=== PATIENT | male | born 1975 | race Caucasian/White ===

== ENCOUNTER 2024-09-26 16:53 | Emergency (ER) | payer BC, SELFPAY ==
--- NOTE | ~2024-09-26 | XR_ITS ---
CHEST RADIOGRAPH, PA AND LATERAL CLINICAL HISTORY: CHEST PAIN . COMPARISON: 08/18/2018 TECHNIQUE: PA and lateral views of the chest. FINDINGS The cardiomediastinal silhouette is unremarkable. The lungs are clear. Visualized osseous structures and soft tissues are unremarkable. IMPRESSION: No focal infiltrate or effusion. Reviewed, dictated and finalized at location A. ING CAKE DESIGNER
--- NOTE | 2024-09-26 16:55 | ECG_ITS ---
Test Date: 2024-09-26 17:04:33 Measurements Intervals [place] Rate: 103 P: 55 SD: 177 QRS: 18 QRSD: 114 T: 19 QT: 362 QTc: 475 Interpretive Statements SINUS TACHYCARDIA NONSPECIFIC ST AND T WAVE ABNORMALITY No previous ECG available for comparison Electronically Signed On 09-28-2024 17:12:33 COATINGS INSPECTOR by Jean-Claude Charlton M.D.
--- NOTE | 2024-09-26 17:08 | ED_ITS ---
HPI - Chest Pain General Chief Complaint: Chest Pain <Rebeca Tolliver PA-C - Last Filed: 09/27/24 11:09> Stated Complaint: ELEVATED BP,CHEST TIGHTNESS AFTER SHOVELING SNOW <Rebeca Tolliver PA-C - Last Filed: 09/27/24 11:09> Time Seen by Provider: 09/26/24 17:08 <Rebeca Tolliver PA-C - Last Filed: 09/27/24 11:09> Focused HPI: This is a 48-year-old male that presents to the emergency department for chest tightness. Reports he shoveled snow for about 2 hours today. His chest started to feel tight. His blood pressure was also quite elevated. He took a dose of his nitroglycerin. Is unsure if this helped. GENERAL: Well-appearing, well-nourished, and in no acute distress. HEAD: Normocephalic, atraumatic. CHEST: Clear to auscultation. ?No respiratory distress. HEART: Regular rate and rhythm.? NEURO: ?Alert and oriented x3. Patient screened in triage and initial orders placed.? ?Additional care and disposition to be based upon?diagnostic testing and treatment. <Rebeca Tolliver PA-C - Last Filed: 09/27/24 11:09> Source: patient <LOGAN Keith Last Filed: 09/27/24 00:02> Mode of arrival: ambulatory <LOGAN Keith Last Filed: 09/27/24 00:02> Limitations: no limitations <LOGAN Keith Last Filed: 09/27/24 00:02> History of Present Illness HPI narrative: Agree with triage note above. Patient states that the discomfort is more of a tightness/burning. States that he has not experienced any the sharp pains or pressure. States that it is located to the left lower chest and does not radiate. Not associated with syncope or near syncope today. Denies nausea, vomiting, back pain, abdominal pain, numbness, weakness of the extremities. States that when he went inside after shoveling he noticed that his blood pressure was elevated, which is what prompted him to come to the ER. Endorses history of hypertension but no history of PA, stroke, smoking history or HLD. <Jose Laird PA-C - Last Filed: 09/27/24 00:02> Related Data Home Medications: Home Medications ?Medication ?Instructions ?Recorded ?Confirmed ?Last Taken ?Type No Home Medications 08/12/19 08/12/19 Unknown History <Rebeca Tolliver PA-C - Last Filed: 09/27/24 11:09> Allergies/Adverse Reactions: Allergies Allergy/AdvReac Type Severity Reaction Status Date / Time No Known Allergies Allergy Verified 09/26/24 16:54 <Rebeca Tolliver PA-C - Last Filed: 09/27/24 11:09> Review of Systems 2 Review of Systems: All systems as dictated in HPI <Jose Laird PA-C - Last Filed: 09/27/24 00:02> PMFSH Past Medical History Medical History: Medical History (Updated 09/27/24 @ 11:09 by Rebeca Tolliver PA-C) History of anxiety History of hypertension <Rebeca Tolliver PA-C - Last Filed: 09/27/24 11:09> Social History Social History: Social History (Updated 09/27/24 @ 11:09 by Rebeca Tolliver PA-C) Substance use: never <Rebeca Tolliver PA-C - Last Filed: 09/27/24 11:09> Exam 2 Narrative: GENERAL: Well-appearing, well-nourished, and in no acute distress. HEAD: Normocephalic, atraumatic. EYES: PERRLA and EOMI. ENT: Nares clear, no rhinorrhea or epistaxis. Mucous membranes moist. Oropharynx without tonsillar hypertrophy exudate or other lesions. NECK: Supple. No adenopathy or masses. CHEST: No respiratory distress. Clear to auscultation. No wheezes rales or rhonchi HEART: Regular rate and rhythm. No murmur heard. Normal peripheral pulses. ABDOMEN: Soft, nontender, nondistended, normal active bowel sounds. MSK: Normal range of motion. No edema. SKIN: Warm, dry, no rash. NEURO: Alert and oriented x4. No focal deficits. PSYCH: Normal mood and affect. <Jose Laird PA-C - Last Filed: 09/27/24 00:02> Course Vital Signs Vital signs: Vital Signs Temperature 98 F 09/26/24 17:16 Pulse Rate 99 09/26/24 17:16 Respiratory Rate 18 09/26/24 17:16 Blood Pressure 166/102 H 09/26/24 17:16 Pulse Oximetry 99 09/26/24 17:16 Oxygen Delivery Room Air 09/26/24 17:16 Temperature 97.0 F L 09/26/24 19:55 Pulse Rate 78 09/26/24 22:42 Respiratory Rate 15 09/26/24 22:42 Blood Pressure 132/88 09/26/24 22:42 Pulse Oximetry 99 09/26/24 22:42 Oxygen Delivery Room Air 09/26/24 21:01 <Rebeca Tolliver PA-C - Last Filed: 09/27/24 11:09> Vital Signs Temperature 98 F 09/26/24 17:16 Pulse Rate 99 09/26/24 17:16 Respiratory Rate 18 09/26/24 17:16 Blood Pressure 166/102 H 09/26/24 17:16 Pulse Oximetry 99 09/26/24 17:16 Oxygen Delivery Room Air 09/26/24 17:16 Temperature 97.0 F L 09/26/24 19:55 Pulse Rate 78 09/26/24 22:42 Respiratory Rate 15 09/26/24 22:42 Blood Pressure 132/88 09/26/24 22:42 Pulse Oximetry 99 09/26/24 22:42 Oxygen Delivery Room Air 09/26/24 21:01 <LOGAN Keith Last Filed: 09/27/24 00:02> MDM - Chest Pain MDM Narrative Medical decision making narrative: This is a 48-year-old male who presents to the ED for chief complaint of chest pain onset this afternoon while shoveling snow all. Vitals are showing elevated blood pressure but otherwise normal. Exam remarkable for the above. EKG unchanged from previous in 2016. No acute ischemic findings. Lab work unremarkable overall. Serial troponins are negative. Heart score is 3 due to history. D-dimer negative. Chest x-ray shows no acute findings. Presentation consistent with atypical chest pain. As possible that the pain was anginal, however he is not displaying signs of ACS. He is pain-free on multiple re-evaluations. He feels comfortable and would prefer to be discharged home at this point. Vitals have normalized. Patient will be discharged in stable condition. Supportive measures discussed and return precautions given. Patient is understanding and agreeable with plan for discharge with PCP follow-up. <Jose Laird PA-C - Last Filed: 09/27/24 00:02> Differential Diagnosis Differential diagnosis: Likely fracture of rib, pneumothorax, stable angina, unstable angina pectoris, atypical chest pain, st elevation myocardial infarction, costochondritis and chest pain <Jose Laird PA-C - Last Filed: 09/27/24 00:02> Lab Data Result diagrams: 09/26/24 17:08 09/26/24 17:08 <Rebeca Tolliver PA-C - Last Filed: 09/27/24 11:09> Labs: Lab Results 09/26/24 09/26/24 09/26/24 Range/Units 17:08 21:07 21:16 WBC 7.6 (4.5-10.0) K/mm3 RBC 4.72 (4.6-6.20) M/mm3 Hgb 15.9 (14.0-18.0) g/dL Hct 42.0 (42.0-52.0) % MCV 89.0 (80-100) fl MCH 33.7 (26-34) pg MCHC 37.9 H (32-36) g/dl RDW 11.6 (11.5-14.5) % Plt Count 207 (150-375) k/mm3 MPV 9.6 (7.4-10.4) fl Immature Gran % (Auto) 0.4 (0-0.5) % Neut % (Auto) 66.5 (45.5-73.1) % Lymph % (Auto) 25.1 (18.3-44.2) % [place] % (Auto) 6.0 (2.6-8.5) % Eos % (Auto) 1.7 (0-4.4) % Baso % (Auto) 0.3 (0.2-1.2) % Lymph # (Auto) 1.92 (0.9-3.2) K/mm3 [place] # (Auto) 0.5 (0.1-0.6) K/mm3 Eos # (Auto) 0.1 (0-0.3) K/mm3 Baso # (Auto) 0.0 (0.0-0.1) K/mm3 Abs Immat Gran (auto) 0.03 (0.00-0.031) K/mm3 Absolute Neuts (auto) 5.1 (1.3-6.7) K/mm3 Absolute Nucleated RBC 0.000 (0.0-0.012) K/mm3 Nucleated RBC % 0.0 (0.0-0.2) % PT 13.4 (11.1-14.7) Seconds INR 1.0 APTT 27.8 (22.3-36.8) Seconds D-Dimer < 0.27 (<0.48) ug/mL Sodium 132 L (137-145) mmol/L Potassium 3.8 (3.4-5.0) mmol/L Chloride 97 L (98-107) mmol/L Carbon Dioxide 25 (22-30) mmol/L Anion Gap 10 (4-12) mmol/L BUN 12 (9-20) mg/dL Creatinine 0.84 (0.7-1.3) mg/dL Estim Creat Clear Calc Not Reportable Estimated GFR > 60 (59 - ) Glucose 126 H (65-110) mg/dL Calcium 9.2 (8.4-10.2) mg/dL Total Bilirubin 1.3 (0.2-1.3) mg/dL AST 33 (17-59) U/L ALT 33 (6-50) U/L Alkaline Phosphatase 59 (38-126) U/L Troponin I < 0.012 < 0.012 (0.000-0.034) ng/mL Total Protein 8.0 (6.3-8.2) g/dL Albumin 4.9 (3.5-5.1) g/dL Lipase 213 (23-300) U/L <Rebeca Tolliver PA-C - Last Filed: 09/27/24 11:09> Lab Results 09/26/24 09/26/24 09/26/24 Range/Units 17:08 21:07 21:16 WBC 7.6 (4.5-10.0) K/mm3 RBC 4.72 (4.6-6.20) M/mm3 Hgb 15.9 (14.0-18.0) g/dL Hct 42.0 (42.0-52.0) % MCV 89.0 (80-100) fl MCH 33.7 (26-34) pg MCHC 37.9 H (32-36) g/dl RDW 11.6 (11.5-14.5) % Plt Count 207 (150-375) k/mm3 MPV 9.6 (7.4-10.4) fl Immature Gran % (Auto) 0.4 (0-0.5) % Neut % (Auto) 66.5 (45.5-73.1) % Lymph % (Auto) 25.1 (18.3-44.2) % [place] % (Auto) 6.0 (2.6-8.5) % Eos % (Auto) 1.7 (0-4.4) % Baso % (Auto) 0.3 (0.2-1.2) % Lymph # (Auto) 1.92 (0.9-3.2) K/mm3 [place] # (Auto) 0.5 (0.1-0.6) K/mm3 Eos # (Auto) 0.1 (0-0.3) K/mm3 Baso # (Auto) 0.0 (0.0-0.1) K/mm3 Abs Immat Gran (auto) 0.03 (0.00-0.031) K/mm3 Absolute Neuts (auto) 5.1 (1.3-6.7) K/mm3 Absolute Nucleated RBC 0.000 (0.0-0.012) K/mm3 Nucleated RBC % 0.0 (0.0-0.2) % PT 13.4 (11.1-14.7) Seconds INR 1.0 APTT 27.8 (22.3-36.8) Seconds D-Dimer < 0.27 (<0.48) ug/mL Sodium 132 L (137-145) mmol/L Potassium 3.8 (3.4-5.0) mmol/L Chloride 97 L (98-107) mmol/L Carbon Dioxide 25 (22-30) mmol/L Anion Gap 10 (4-12) mmol/L BUN 12 (9-20) mg/dL Creatinine 0.84 (0.7-1.3) mg/dL Estim Creat Clear Calc Not Reportable Estimated GFR > 60 (59 - ) Glucose 126 H (65-110) mg/dL Calcium 9.2 (8.4-10.2) mg/dL Total Bilirubin 1.3 (0.2-1.3) mg/dL AST 33 (17-59) U/L ALT 33 (6-50) U/L Alkaline Phosphatase 59 (38-126) U/L Troponin I < 0.012 < 0.012 (0.000-0.034) ng/mL Total Protein 8.0 (6.3-8.2) g/dL Albumin 4.9 (3.5-5.1) g/dL Lipase 213 (23-300) U/L <Jose Laird PA-C - Last Filed: 09/27/24 00:02> Imaging Data Radiologist's impression: ITS Impressions Chest X-Ray 09/26/24 17:33 IMPRESSION: No focal infiltrate or effusion. <Rebeca Tolliver PA-C - Last Filed: 09/27/24 11:09> ECG Data EKG #1: ECG completion date: 09/26/24 <LOGAN Keith Last Filed: 09/27/24 00:02> ECG completion time: 17:04 <Jose Laird PA-C - Last Filed: 09/27/24 00:02> Interpretation: Sinus rhythm Rate 103 Normal QRS No acute ischemic findings compared ECG on file from 2016. There are isolated T-wave inversions in lead 3 on today's EKG which are previously seen from 2016 as well. No STEMI <LOGAN Keith Last Filed: 09/27/24 00:02> EKG #2: ECG completion date: 09/26/24 <LOGAN Keith Last Filed: 09/27/24 00:02> ECG completion time: 20:58 <LOGAN Keith Last Filed: 09/27/24 00:02> Prior ECG tracings: available for review <LOGAN Keith Last Filed: 09/27/24 00:02> Interpretation: Sinus rhythm rate 83 Normal QRS Normal QTC No acute ischemic findings, unchanged from previous ECG today <LOGAN Keith Last Filed: 09/27/24 00:02> Critical Care Time Critical Care Time Critical Care Time: No <LOGAN Morejon Last Filed: 09/27/24 11:09> Discharge Plan Discharge Clinical Impression: Atypical chest pain <LOGAN Morejon Last Filed: 09/27/24 11:09> Patient Disposition: Home, Self-Care <LOGAN Morejon Last Filed: 09/27/24 11:09> Condition: Stable <LOGAN Morejon Last Filed: 09/27/24 11:09> Instructions: Antibiotic Form, Chest Pain (ED) <LOGAN Morejon Last Filed: 09/27/24 11:09> Additional Instructions: Your exam and imaging today are reassuring overall. Please continue taking your medications as prescribed and follow-up with PCP on this issue. If you have any new or worsening symptoms please return to the ER for further evaluation. <Rebeca Tolliver PA-C - Last Filed: 09/27/24 11:09> Patient Language: Setswana <LOGAN Morejon Last Filed: 09/27/24 11:09> Prescriptions: No Action No Home Medications <LOGAN Morejon Last Filed: 09/27/24 11:09> Follow-up/Referrals: Zoltan,MD Jacques [Primary Care Provider] - <LOGAN Morejon Last Filed: 09/27/24 11:09> Time of Disposition: 22:34 <LOGAN Morejon Last Filed: 09/27/24 11:09> 22:34 <LOGAN Keith Last Filed: 09/27/24 00:02> Quality HEART score for chest pain patients History: slightly suspicious <LOGAN Keith Last Filed: 09/27/24 00:02> ECG: non specific repolarization disturbance/LBTB/PM <LOGAN Keith Last Filed: 09/27/24 00:02> Age: > 45 and < 65 years <Jose Laird PA-C - Last Filed: 09/27/24 00:02> Risk factors: 1 or 2 risk factors <Jose Laird PA-C - Last Filed: 09/27/24 00:02> Troponin: < or = to 1x normal limit <Jose Laird PA-C - Last Filed: 09/27/24 00:02> Heart score: 3 <Rebeca Tolliver PA-C - Last Filed: 09/27/24 11:09> 3 <Jose Laird PA-C - Last Filed: 09/27/24 00:02>
[2024-09-26 17:14] LABS: Basophils Percent Auto 0.3 % (0.2-1.2); Eosinophils Absolute Auto 0.1 K/mm3 (0-0.3); Eosinophils Percent Auto 1.7 % (0-4.4); Hemoglobin 15.9 g/dL (14.0-18.0); Immature Granulocyte Absolute 0.03 K/mm3 (0.00-0.031); Immature Granulocyte Percent A 0.4 % (0-0.5); Lymphocytes Absolute Auto 1.92 K/mm3 (0.9-3.2); Lymphocytes Percent Auto 25.1 % (18.3-44.2); Mean Corpuscular HGB Conc 37.9 g/dl (32-36); Mean Corpuscular Hemoglobin 33.7 pg (26-34); Mean Platelet Volume 9.6 fl (7.4-10.4); Monocytes Absolute Auto 0.5 K/mm3 (0.1-0.6); Neutrophils Absolute Auto 5.1 K/mm3 (1.3-6.7); Neutrophils Percent Auto 66.5 % (45.5-73.1); Platelet Count Result 207 k/mm3 (150-375); Red Blood Count 4.72 M/mm3 (4.6-6.20); Red Cell Distribution Width 11.6 % (11.5-14.5); White Blood Count 7.6 K/mm3 (4.5-10.0)
[2024-09-26 17:16] VITALS: BP 166/102; PULSE 99; RESP 18; TEMP 36.6; O2SAT 99
[2024-09-26 17:24] LABS: Alanine Aminotransferase 33 U/L (6-50); Albumin Level 4.9 g/dL (3.5-5.1); Alkaline Phosphatase 59 U/L (38-126); Anion Gap 10 mmol/L (4-12); Aspartate Amino Transferase 33 U/L (17-59); Bilirubin,Total 1.3 mg/dL (0.2-1.3); Blood Urea Nitrogen 12 mg/dL (9-20); Calcium 9.2 mg/dL (8.4-10.2); Carbon Dioxide 25 mmol/L (22-30); Chloride 97 mmol/L (98-107); Estimated Glomerular Filt Rate > 60; Glucose 126 mg/dL (65-110); Lipase 213 U/L (23-300); Potassium 3.8 mmol/L (3.4-5.0); Sodium 132 mmol/L (137-145)
[2024-09-26 17:26] LABS: Partial Thromboplastin Time 27.8 Seconds (22.3-36.8); Prothrombin Time 13.4 Seconds (11.1-14.7)
[2024-09-26 17:35] LABS: Troponin I < 0.012 ng/mL (0.000-0.034)
[2024-09-26 19:55] VITALS: BP 171/108; PULSE 94; RESP 18; TEMP 36.1; O2SAT 99
--- NOTE | 2024-09-26 20:40 | ECG_ITS ---
Test Date: 2024-09-26 20:58:56 Measurements Intervals [place] Rate: 83 P: 40 HI: 158 QRS: -2 QRSD: 113 T: 12 QT: 374 QTc: 441 Interpretive Statements SINUS RHYTHM NONSPECIFIC ST AND T WAVE ABNORMALITY Compared to ECG 09/26/2024 17:04:33 NO SIGNIFICANT CHANGES Electronically Signed On 09-28-2024 17:18:16 FIELD PLACEMENT DIRECTOR by Jean-Claude Charlton M.D.
[2024-09-26 21:43] LABS: Troponin I < 0.012 ng/mL (0.000-0.034)
[2024-09-26 21:54] LABS: D Dimer < 0.27 ug/mL (<0.48)
[2024-09-26 22:27] VITALS: BP 132/90; PULSE 79; RESP 15; O2SAT 98
[2024-09-26 22:42] VITALS: BP 132/88; PULSE 78; RESP 15; O2SAT 99
--- OUTSIDE RECORDS SUMMARY | 2024-10-03 03:46 | XMS_ITS | Clinical Summary ---
Author Organization [facility] Address [address] [place] [id number] Care Team Providers Care Residential Designer Name Role Phone Ivanna Wadsworth RAIL CAR REPAIR CARMAN Primary Care Provider + Allergies No known active allergies Medications metoprolol (LOPRESSOR) 25 mg tablet TAKE 1 TABLET EVERY MORNING AND 1 TABLET AT BEDTIME FOR BP CONTROL 0 9 Active vitamin D3/vitamin K2, MK4, (K2 PLUS D3 ORAL) Take 1 tablet by mouth every morning Active multivit-min/fol ic/vit K/lycop (MEN'S MULTIVITAMIN ORAL) Take 1 tablet by mouth every morning Active cyanocobalamin (Vitamin B-12) 1,000 mcg tabletIndication s:Prevention of Vitamin B12 Deficiency Take 1,000 mcg by mouth every morning Active naproxen (NAPROSYN) 500 mg tabletIndication s:Right hip pain Take 1 tablet (500 mg total) by mouth 2 (two) times a day with meals TAKE 2 WITH BREAKFAST THE DAY BEFORE SURGERY THEN BID 16 tablet 9 Active HYDROcodone-acet aminophen (NORCO) 5-325 mg per tabletIndication s:Pain Take 1-2 tablets by mouth every 4 (four) hours as needed for pain 56 tablet 9 Active Additional Information Patient not taking.Reported on 08/01/2019 aspirin 325 mg tablet Take 1 tablet (325 mg total) by mouth 2 (two) times a day 60 tablet 9 Active scopolamine 1 mg over 3 days patch 3 day BRENNEN 1 PATCH BEHIND EAR 1 DAY PRIOR TO SURGERY DATE 0 9 Active chlorhexidine (PERIDEX) 0.12 % solution 0 9 Active Active Problems Problem Noted Date Diagnosed Date Labral tear of hip, degenerative 03/16/2019 Overview (03/16/2019): Added automatically from request for surgery [id number] Surgical History Surgery Date Site/Laterality Comments TONSILLECTOMY CLOSED REDUCTION AC JOINT Medical History Medical History Date Comments Anxiety Hypertension Sleep apnea, obstructive Social History Tobacco Use Types Packs/Day Years Used Date Smoking Tobacco: Never Smokeless Tobacco: Never Alcohol Use Standard Drinks/Week Comments Yes 0 (1 standard drink = 0.6 oz pur e alcohol) 6-12 drinks/week AUDIT-C Answer Date Recorded Frequency of Alcohol Consumption Never 01/21/2019 Average Number of Drinks Not on file 019 Frequency of Binge Drinking Not on file 11/2018 Sex and Gender Information Value Date Recorded Sex Assigned at Not on file 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 Gender Identity Not on file Sexual Orientation Not on file Obstetrics History Last Filed Vital Signs Vital Sign Reading Time Taken Comments Blood Pressure 133/93 04/22/2019 12:30 PM CDT Pulse 74 04/22/2019 12:50 PM CDT Temperature 36.2 ??C (97.2 ??F) 04/22/2019 1:30 PM CD T Respiratory Rate 12 04/22/2019 10:50 AM CDT Oxygen Saturation 98% 04/22/2019 12:50 PM CDT Inhaled Oxygen Concentration - - Weight 119 kg (262 lb 5.6 oz) 04/05/2019 3:25 PM CDT Height 185.4 cm (6' 1 ) 04/05/2019 3:25 PM CDT Body Mass Index 34.61 04/05/2019 3:25 PM CDT Plan of Treatment Not on file Medical Devices Implanted Type Area Multiskill Operator Device Identifier Shelf Expiration Date Model / Serial / Lot Dental Implant Tooth [employer] [id number] Bioraptor Knotless Inner Lock Plug Controllable Tension Food Safety Auditor - [id number] Implanted:Qty: 2 on 04/22/2019 by David Mathias MD at [facility] Right: Hip [employer] 06/16/2023 [id number] / / [id number] [employer] Ar-1938ps Knotless Suturetak Fiberwire 3mm 12.7mm 2 Banner Suture Peek - [id number] Implanted:Qty: 1 on 04/22/2019 by David Mathias MD at [facility] Right: Hip [employer] 12/20/2023 AR-1938PS / / [id number] [employer] Ar-1938ps Knotless Suturetak Fiberwire 3mm 12.7mm 2 Banner Suture Peek - [id number] Implanted:Qty: 1 on 04/22/2019 by David Mathias MD at [facility] Right: Hip [employer] [id number] 12/20/2023 AR-1938PS / / [id number] [employer] [id number] Bioraptor Knotless Inner Lock Plug Controllable Tension Food Safety Auditor - [id number] Implanted:Qty: 1 on 04/22/2019 by David Mathias MD at [facility] Right: Hip [employer] 07/16/2023 [id number] / / Insurance ACCESS CHOICE Care Teams Residential Designer Relationship Specialty Start Date End Date Ivanna Wadsworth NP [address] [address] PCP - General Nurse Practitioner 12/17/18
--- OUTSIDE RECORDS SUMMARY | 2024-10-03 03:46 | XMS_ITS ---
Author Name [facility] [place] [facility] Address [address] [place] [id number] Care Team Providers Care Stock Raiser Name Role Phone ELIA OSWALDO Primary Care Provider Unavailabl e Insurance Providers: All historical and current Section Date Range: From patient's date of to the date document was created. This section includes the names of all active insurance providers for the patient. Insurance Provider Type of Coverage Plan Name Start of Policy Coverage End of Policy Coverage Group Number Member ID Insurance Provider's Telephone Number Policy Barros's Name Patient's Relationship to Policy Barros [place] PREFERRED PROVIDER ORGANIZAT [place]ON (PPO) [place] Sep 21, 2018 [id number] [phone] BILLIE DOUGHERTY MY SPOUSE ANTHEM [place] PREFERRED PROVIDER ORGANIZAT ION (PPO) [place] Sep 21, 2018 [id number] [phone] BILLIE DOUGHERTY MY SP[employer]SE AN[place] PREFERRED PROVIDER ORGANIZAT ION (PPO) [place] Sep 21, 2018 [id number] [phone] BILLIE DOUGHERTY MY SPOUSE [place] PREFERRED PROVIDER ORGANIZAT ION (PPO) [place] Sep 21, 2018 [id number] [phone] BILLIE DOUGHERTY MY SPOUSE Selected Encounter This section includes the information on record at [place] for the Encounter. Date/Time Encounter Type Encounter Description Reason Pro vider Source Dec 16, 2023 05:59 PM Outpatient Encounter ADMIN PAT ACTIVTIES (MASNONCT) IHE Encounter Template Text not used by [place] Social History: Smoking Status (Most current) and Tobacco Use (All prior to encounter date) This section includes the most current, and the historical, smoking and tobacco- related health factors from the [place] facility where the Encounter took place. Current Smoking Status This section includes the most current smoking, or tobacco-related health factor, from the [place] facility where the Encounter took place. Date/Time Current Smoking Status Comment Carla ity Mar 10, 2016 09:58 AM LIFETIME NON-USER OF TOBACCO [facility] Tobacco Use History This section includes a history of the smoking, or tobacco-related health factors, that were collected on or before the date of the Encounter. The data comes from the [place] facility where the Encounter took place. Date/Time Smoking Status/Tobacco Use Comment F acility Apr 10, 2015 12:44 PM LIFETIME NON-USER OF TOBAC [place] never [facility] Apr 17, 2014 06:52 AM LIFETIME NON-USER OF TOBAC CO never [facility] Encounter Notes: All associated encounter notes This section contains the clinical notes associated to the Encounter. Date/Time Encounter Note(s) Provider Source Dec 16, 2023 06:05 PM ADMINISTRATIVE NOT E: LOCAL TITLE: SCHEDULING NOTE ST STANDARD TITLE: ADMINISTRATIVE NOTE DATE OF NOTE: DEC 16, 2023@18:05 ENTRY DATE: DEC 16, 2023@18:05:40 AUTHOR: ELIZABETH REY EXP COSIGNER: URGENCY: STATUS: COMPLETED Additional comments: CALLED AND LEFT MESSAGE FOR PATIENT TO CALL TO SCHEDULE A NEW PATIENT APPOINTMENT PER INACTIVE LIST. ADDITIONAL RESULTS FROM SCHEDULING ATTEMPTS: /florence/ ELIZABETH REY Strip Catcher, COLIN Signed: 12/16/2023 18:06 ELIZABETH REY [facility] Dec 16, 2023 05:59 PM PRIMARY CARE SAWYER RS: LOCAL TITLE: PC NEW PATIENT NO CONTACT LETTER STL STANDARD TITLE: PRIMARY CARE LETTERS DATE OF NOTE: DEC 16, 2023@17:59 ENTRY DATE: DEC 16, 2023@17:59:46 AUTHOR: ELIZABETH REY EXP COSIGNER: URGENCY: STATUS: COMPLETED [facility] [address] [place] [address] DEC 16, 2023 ROEL [address]OUGH[address] [place] [address] Dear Roel Dougherty, Thank you for your interest in establishing care with a Primary Care Provider at the [facility]. Your Primary Care Provider is the clinical leader of your Patient Aligned Care Team (PACT). Your PACT Team manages and coordinates your comprehensive health care services. Primary Care includes, but is not limited to: diagnosis and management of acute and chronic health conditions, health promotion, disease prevention, overall care management, post-deployment care, and patient and caregiver education. If you would like more information, please visit [email or web address]. We have been unsuccessful in our attempts to contact you to schedule your initial appointment. Based on your current residence, the clinic recommended for your primary care needs is: [place] [phone] We are happy to accommodate your request with another clinic, if needed. Please call to schedule your initial appointment. Thank you for your service, and we look forward to hearing from you. Sincerely, ELIZABETH REY Strip Catcher, ROEL KENNEY [facility]
--- OUTSIDE RECORDS SUMMARY | 2024-10-03 03:46 | XMS_ITS | Referral Summary ---
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 Gender Identity Not on file Sexual Orientation Not on file Last Filed Vital Signs Vital Sign Reading [...] on file Medical Devices Implanted Type Area Oyster Grower Device Identifier Shelf Expiration Date Model / Serial / Lot Dental Implant Tooth [employer] [id number] Bioraptor Knotless Inner Lock Plug Controllable Tension Blood Bank Technologist - [id number] Implanted:Qty: 2 on 04/22/2019 by David Mathias MD at [facility] Right: Hip [employer] 06/16/2023 [id number] / / [id number] [employer] Ar-1938ps Knotless Suturetak Fiberwire 3mm 12.7mm 2 [employer] Suture Peek - [id number] Implanted:Qty: 1 on 04/22/2019 by David Mathias MD at [facility] Right: Hip [employer] 12/20/2023 AR-1938PS / / [id number] [employer] Ar-1938ps Knotless Suturetak Fiberwire 3mm 12.7mm 2 [employer]ilon Suture Peek - [id number] Implanted:Qty: 1 on 04/22/2019 by David Mathias MD at [facility] Right: Hip [employer] [id number] 12/20/2023 AR-1938PS / / [id number] [employer] [id number] Bioraptor Knotless Inner Lock Plug Controllable Tension Blood Bank Technologist - [id number] Implanted:Qty: 1 on 04/22/2019 by David Mathias MD at [facility] Right: Hip [employer] 07/16/2023 [id number] / / Insurance ACCESS CHOICE Care Teams Visitor Services Associate Relationship Specialty Start Date End Date Ivanna Wadsworth NP [address] [address] PCP - General Nurse Practitioner 12/17/18
--- OUTSIDE RECORDS SUMMARY | 2024-10-03 03:46 | XMS_ITS | Encounter Summary ---
Author Organization [facility] Address [address] [place] [address] Phone Care Team Providers Care Associate Spa Director Name Role Phone Brianna Wadsworth Miriam PLANT BIOLOGY PROFESSOR Primary Care Provider + Reason for Visit * Reason Comments Follow-up Encounter Details Date Type Department Care Team (Late st Contact Info) Description 08/01/2019 3:00 PM MAINFRAME CONSULTANT Office Visit [facility] [address] [place] [phone] David Mathias MD [address] [facility] [address] [place] [phone] Right hip pain (Primary Dx) Social History Tobacco Use Types Packs/Day Years [...] on file 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 The patient states he is making slow but steady progress, using ibuprofen on days when he is very active, doing home exercise program, mostly with bands and treadmill, and he has done a little bit of light jogging just recently. Overall making slow and steady increase in improvement. PHYSICAL EXAMINATION: General: He is alert and oriented x3. No acute distress. Nonlabored breathing. Musculoskeletal: He is moving comfortably in clinic. Gentle motion of his hip does not seem to be irritating him like it was before surgery. TREATMENT PLAN: The plan at this time is for him to gradually increase his activities, try to avoid jumping too quickly into new sports or activities without slowly introducing them in a conservative way. FOLLOW-UP: Otherwise, we will see him back for 1-year follow-up. Glad to see him back sooner if there are any issues or problems. ELECTRONICALLY SIGNED - 08/08/2019 08:46 AM David Mathias MD Land Surveying Survey Worker Joint Preservation, Resurfacing and Replacement Service [facility] RN/ps cc: MD BRIANNA WILLS NP FRAME CONSULTANT documented in this encounter Plan of Treatment Not on file documented as of this encounter Visit Diagnoses Diagnosis Right hip pain- Primary Pain in joint, pelvic region and thigh documented in this encounter Historical Medications * This list may reflect changes made after this encounter. Medication Sig Dispense Quantity Refills Last Filled Start D ate End Date chlorhexidine (PERIDEX) 0.12 % solution 0 05/18/2019 added in this encounter Care Teams Associate Spa Director Relationship Specialty Start Date End Date Brianna Wadsworth NP [address] [address] PCP - General Nurse Practitioner 12/17/18 documented as of this encounter
--- OUTSIDE RECORDS SUMMARY | 2024-10-03 03:46 | XMS_ITS | Encounter Summary ---
Author Organization [facility] Address [address] [place] [address] Phone Care Team Providers Care Python Consultant Name Role Phone Ivanna Wadsworth Miriam PAN GREASER Primary Care Provider + Encounter Details Date Type Department Care Team (Late st Contact Info) Description 04/13/2019 Telephone [facility] Orthopaedic Surgery 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 Confirm patient understands exactly what medications should be held 1 week prior to surgery: Yes Verify patient understands exactly what medications to take AM of surgery: Yes Verify if patient has CPAP machine & remind them to bring it with them to the hospital: No: Verify patient insurance: Yes Verify patient still has a joint coach wirer that will be caring for them AT LEAST 3-5 days/24 hours a day post op: Yes If patient having Posterior RHIANNON -- verify patient has a raised toilet seat & hip kit: No: Instruct patient to have joint coach wirer at the hospital on POD#1 to attend D/C class &/or observe nursing staff/OT/PT sessions: Yes Verify changes in medical status: No: If Yes, comment: Verify clean skin integrity: Yes If No, comment: documented in this encounter Plan of Treatment Not on file documented as of this encounter Visit Diagnoses Not on filedocumented in this encounter Care Teams Python Consultant Relationship Specialty Start Date End Date Ivanna Wadsworth NP [address] [address] PCP - General Nurse Practitioner 12/17/18 documented as of this encounter
--- OUTSIDE RECORDS SUMMARY | 2024-10-03 03:46 | XMS_ITS | Continuity of Care Document ---
Author Name [facility] Organization [facility] Care Team Providers Care Teaching Young Name Role Phone [facility] Unavailable Unavailable Problems Combined list of problems from Department of [facility] and [facility] facilities. It does not include entries that were removed or entered in error. Problem Status Onset Date Problem Type Date of Resolution Comments Source Benign hypertension Active Condition [facility] Chronic low back pain Active Condition [facility] Femoral acetabular impingement Active Condition [facility] HE[facility] SURVEY Active Condition DAVID Herrera [facility] Neck pain Active Condition [facility] Primary insomnia Active Condition [facility] Medications Combined list of outpatient medications from Department of [facility] and [facility] facilities.Medications provided include 1) outpatient medications from the last 15 months, and 2) patient-reported medications. Medication Details Route Status Patient Instructions Prescription Expires Prescription Number Last Dispense Date Ordering Provider Order Date Order Qty Source ACETAMINOPH EN 500MG TAB TAKE TWO TABLETS BY MOUTH THREE TIMES A DAY NEEDED ORAL ACTIVE PARESH GEORGE [address] [facility] METOPROLOL TARTRATE 50MG TAB TAKE ONE-HALF TABLET BY MOUTH TWICE A DAY ORAL ACTIVE KILEY RODRIGEZ 2018 [facility] Immunizations Combined list of available immunizations from the Department of [facility] and [facility] facilities. Immunization Series Date Given Administered By Site Reaction Lot Number CVX Code Drug Records Clerk Status Comments Source INFLUENZA, SEASONAL, INJECTABLE, PRESERVATIVE FREE [address] [facility] TDAP 2013 115 complet ed Left Deltoid [facility] Encounters Combined list of: 1) Encounters from [facility] of [facility] facilities going back up to thelast 18 months. 2) Encounters from the Department of [facility] facilities going back up to 280 months. Location Location Details Encounter Type Encounter Number Reason For Visit Attending Provider ADM Date DC Date Status Disposition Source [facility] Outpatient Encounter [id number] 1 12/[address] [facility] Social History Combined list of available smoking, tobacco, and other social history from Department of Defense and Veterans Affairs facilities. Social History Type Response Date Comment Sour e Tobacco smoking status [facility]TO[facility] NEVER USED 08/19/2018 [facility] History of tobacco use LIFETIME NON-USER OF TOBACCO 06/01/2017 never [facility] History of tobacco use LIFETIME NON-USER OF TOBACCO 04/27/2017 never [facility] History of tobacco use LIFETIME NON-USER OF TOBACCO 03/10/2016 [facility] History of tobacco use LIFETIME NON-USER OF TOBACCO 04/10/2015 never [facility] History of tobacco use LIFETIME NON-USER OF TOBACCO 04/17/2014 never [facility]
--- OUTSIDE RECORDS SUMMARY | 2024-10-03 03:46 | XMS_ITS | Encounter Summary ---
Author Organization [facility] Address [address] [place] [address] Care Team Providers Care Rn Hemo Dialysis Name Role Phone Ivanna Wadsworth NP Primary Care Provider + Reason for Visit * Diagnostic Imaging (Routine) - Closed Specialty Diagnoses / Procedures Referred By Mendez t Referred To Contact Diagnoses Right hip pain Procedures XR Hip Right 4 or More Views David Mathias MD Phone: tel: fax: [place] [address] [address] Referral ID Status Reason Start Date Expiration Date Visits Re quested Visits Authorized [id number] Closed 02/25/2019 09/05/2020 1 1 Encounter Details Date Type Department Care Team (Latest Contact Info) Description 03/16/2019 2:30 PM CDT Ancillary Procedure [facility] [address] [place] [address] David Mathias MD [address] [facility] [address] [place] [address] Right hip pain Discharge Disposition: Discharge to home or self care Social History Tobacco Use Types Packs/Day Years Used Date Smoking Tobacco: Never Smokeless Tobacco: Never Alcohol Use Standard Drinks/Week Comments Never 0 (1 standard drink = 0.6 oz pur e alcohol) AUDIT-C Answer Date Recorded Frequency of Alcohol Consumption Never 01/21/2019 Average Number of Drinks Not on file 019 Frequency of Binge Drinking Not on file 11/2018 Sex and Gender Information Value Date Recorded Sex Assigned at Not on file 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 Gender Identity Not on file Sexual Orientation Not on file documented as of this encounter Discharge Disposition Disposition Code Departure Means Destination Discharge to home or self care documented in this encounter Plan of Treatment Not on file documented as of this encounter Procedures Procedure Name Priority Date/Time Associated Diagnosis Comments XR HIP RIGHT 4 OR MORE VIEWS Schedule Routine, Read Routine (OP Routine) 03/16/2019 1:49 PM CDT Right hip pain documented in this encounter Results * XR Hip Right 4 or More Views (03/16/2019 1:49 PM CDT) Anatomical Region Laterality Modality Lower Extremities, Hip, Pelvis Right C omputed Radiography 03/16/2019 1:56 PM CDT Impressions 03/16/2019 1:56 PM CDT 1. 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 Electronically signed by: Arnav Osei M.D. Narrative 03/16/2019 1:56 PM CDT EXAMINATION:XR HIP RIGHT 4 OR MORE VIEWS HISTORY: Right hip pain FINDINGS: 4 radiographs of the right hip are submitted for interpretation without available comparison. ??There is no fracture. ??The right hip joint spaces are normal. ??There is mild deficient femoral head neck offset with a cam-type deformity. ??Sacroiliac joints are normal. ??The left hip joint space is normal. ??There is a sclerotic lesion within the left intertrochanteric femur likely representing a bone island Procedure Note Arnav Osei MD - 03/16/2019 EXAMINATION:XR HIP RIGHT 4 OR MORE VIEWS HISTORY: Right hip pain FINDINGS: 4 radiographs of the right hip are submitted for interpretation without available comparison. There is no fracture. The right hip joint spaces are normal. There is mild deficient femoral head neck offset with a cam-type deformity. Sacroiliac joints are normal. The left hip joint space is normal. There is a sclerotic lesion within the left intertrochanteric femur likely representing a bone island IMPRESSION: 1. 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 Electronically signed by: Arnav Osei M.D. David Mathias MD IMG XR PROCEDURES Final R esult documented in this encounter Visit Diagnoses Diagnosis Right hip pain Pain in joint, pelvic region and thigh documented in this encounter Care Teams Rn Hemo Dialysis Relationship Specialty Start Date End Date Ivanna Wadsworth NP [address] [address] PCP - General Nurse Practitioner 12/17/18 documented as of this encounter
--- OUTSIDE RECORDS SUMMARY | 2024-10-03 03:46 | XMS_ITS | Encounter Summary ---
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 Gender Identity Not on file Sexual Orientation Not on file documented as of this encounter Last Filed Vital Signs Vital Sign Reading Time Taken Comments Blood Pressure 133/93 04/22/2019 12:30 PM CDT Pulse 74 04/22/2019 12:50 PM CDT Temperature 36.2 ??C (97.2 ??F) 04/22/2019 1:30 PM CD T Respiratory Rate 12 04/22/2019 10:50 AM CDT Oxygen Saturation 98% 04/22/2019 12:50 PM CDT Inhaled Oxygen Concentration - - Weight - - Height - - Body Mass Index - - documented in this encounter Discharge Diagnoses Diagnosis Primary osteoarthritis of right hip - UNILATERAL PRIMARY OSTEOARTHRITIS, RIGHT HIP Other specified joint disorders, right hip - OTHER SPECIFIED JOINT DISORDERS, RIGHT HIP Anxiety disorder - ANXIETY DISORDER, UNSPECIFIED Anxiety state, unspecified Essential (primary) hypertension - ESSENTIAL (PRIMARY) HYPERTENSION Unspecified essential hypertension Obstructive sleep apnea - OBSTRUCTIVE SLEEP APNEA (ADULT) (PEDIATRIC) Obstructive sleep apnea (adult) (pediatric) Other terminal gauger supervisor (current) drug therapy - OTHER OFFAL BALER (CURRENT) DRUG THERAPY documented in this encounter Discharge Instructions * Discharge Instructions* Jose Rogers MD - 04/22/2019 10:41 AM CDT * Your incision is closed with dissolvable sutures under your skin and your skin has white steri strips & band-aid over the incision covered with an ashlyn wrap. You may remove the ashlyn wrap & band-aid 3 days after surgery. DO NOT REMOVE, PICK or RUB the steri strips- allow them to fall off by themselves in 7-10 days BUT if not off by 14 days after surgery- please remove. You may start showering 3-4 days after surgery with waterproof dressing (MANDATORY). You can stop using the waterproof dressing 1 week after surgery if the incision is dry and no drainage noted. * Do NOT submerge your incision (in a tub, hot tub, pool, panda, river, etc.) until it is healed andyour surgeon says it's ok. Do NOT use lotion, oil, alcohol or cream on your incision.* Hip Scope: -- Do NOT bend (flex) your hip more than 90 degrees. -- Do NOT let anyone bend (flex) your hip more than 90 degrees. -- Do NOT roll your thigh/knee inward/outward. -- You may do range of motion (ROM) / strengthening exercises on your affected leg like physical therapy showed you in the hospital. * Attachments The following attachments cannot be sent through Care Everywhere. * [facility] PATHWAY TO EXCELLENT CARE AFTER SURGERY * Scopolamine (Absorbed through the skin) ([place] Island[place]) documented in this encounter Medications at Time of Discharge aspirin 325 mg tablet Take 1 tablet (325 mg total) by mouth 2 (two) times a day 60 tablet 04/22/2019 cyanocobalamin (Vitamin B-12) 1,000 mcg tabletIndications: Prevention of Vitamin B12 Deficiency Take 1,000 mcg by mouth every morning HYDROcodone-acetam inophen (NORCO) 5-325 mg per tabletIndications: Pain Take 1-2 tablets by mouth every 4 (four) hours as needed for pain 56 tablet 04/22/2019 metoprolol (LOPRESSOR) 25 mg tablet TAKE 1 TABLET EVERY MORNING AND 1 TABLET AT BEDTIME FOR BP CONTROL 0 11/25/2018 multivit-min/folic /vit K/lycop (MEN'S MULTIVITAMIN ORAL) Take 1 tablet by mouth every morning naproxen (NAPROSYN) 500 mg tabletIndications: Right hip pain Take 1 tablet (500 mg total) by mouth 2 (two) times a day with meals TAKE 2 WITH BREAKFAST THE DAY BEFORE SURGERY THEN BID 16 tablet 04/13/2019 scopolamine 1 mg over 3 days patch 3 day BRENNEN 1 PATCH BEHIND EAR 1 DAY PRIOR TO SURGERY DATE 0 04/13/2019 vitamin D3/vitamin K2, MK4, (K2 PLUS D3 ORAL) Take 1 tablet by mouth every morning senna-docusate (SENOKOT-S) 8.6-50 mg Take 1 tablet by mouth daily for 14 days 14 tablet 04/22/2019 9 documented as of this encounter Ordered Prescriptions Prescription Sig Dispense Quantity Refills Last Filled Start Date End Date aspirin 325 mg tablet Take 1 tablet (325 mg total) by mouth 2 (two) times a day 60 tablet 04/22/2019 HYDROcodone-acetam inophen (NORCO) 5-325 mg per tabletIndications: Pain Take 1-2 tablets by mouth every 4 (four) hours as needed for pain 56 tablet 04/22/2019 senna-docusate (SENOKOT-S) 8.6-50 mg Take 1 tablet by mouth daily for 14 days 14 tablet 04/22/2019 9 documented in this encounter Discharge Disposition Disposition Code Departure Means Destination Discharge to home or self care documented in this encounter H&P Notes * Chaim Alexander MD - 04/22/2019 6:17 AM CDT I have reviewed the H&P, examined the patient, and endorse the findings as written. Plan of Care : Based on the above findings, I consider Roel Dougherty to be an acceptable risk for :Procedure(s): ARTHROSCOPY HIP - LABRAL REPAIR hip scope, osteo, scottie repair ARTHROSCOPY HIP - HIP OSTEOPLASTY Cosigned by David Mathias MD at 04/22/2019 12:44 PM CDT Source Note - Harini Charlton MD - 04/05/2019 3:48 PM CDT [facility] Planning Preoperative Evaluation Record [facility] at [facility] ([facility]) Date: 04/05/19 Anesthesia Evaluation Roel Dougherty is a 43 y.o. 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 male who is being evaluated prior to undergoing R hip arthroscopic labral repair, osteoplasty for R hip labral tear . Past Medical History Neurological + Psychiatric history - anxiety Pertinent negatives: neuromuscular disease; CVA/stroke and TIA Cardiovascular + Hypertension Typical systolic BP - 138 Typical diastolic BP - 78 Pertinent negatives: CAD ; ID ; DVT/PE; negative for CHF and hyperlipidemia Respiratory + Sleep apnea (PRINCESS) (CPAP non compliant. sleeps on side. ) Pertinent negatives: COPD; asthma; no O2 use outside the hospital and non-smoker Hepatic / Heme Pertinent negatives: liver disease and history of anemia Gastrointestinal Pertinent negatives: GERD Renal / Pertinent negatives: renal disease Musculoskeletal/Pain + Chronic pain (R hip) Pertinent negatives: chronic opioid use and osteoarthritis Endocrine / Other + Obesity (BMI >30) Pertinent negatives: diabetes mellitus; thyroid disease and cancer history Functional Capacity Functional capacity: 4-6 METs Comments: Limited by R hip pain Review of Systems + SOB (anxiety) + chronic pain (R hip) Pertinent negatives: recent cold/flu; fever; orthopnea; PND; previous transfusion; easy bruising; bleeding problems; nausea; diarrhea; dentures/partials and chipped/loose teeth PAT Summary and Plans Initial preoperative evaluation discussed with: Daniel Taylor MD Additional comments: Roel Dougherty is a 43 y.o. male who is being evaluated prior to undergoing an intermediate cardiac risk surgery. Revised Cardiac Risk Index factors are (none) for a total RCRI of0 out of 6. Functional capacity is 4-6 METs. Obstructive sleep apnea (PRINCESS) screening status is HIGH RISK due to known PRINCESS. Blood bank needs for day of procedure: No type and screen needed Pending labs/tests include: CMP Vitamin D Preoperative evaluation performed by Harini Charlton MD on 04/05/19 at 3:49 PM. . Follow up note Labs reviewed and are without significant findings. CPAP process complete. Follow-up completed by: Harini Charlton MD on 04/06/19 at 9:49 AM Patient Active Problem List Diagnosis ??? Labral tear of hip, degenerative Past Medical History: Diagnosis Date ??? Anxiety ??? Hypertension ??? Sleep apnea, obstructive Past Surgical History: Procedure Laterality Date ??? CLOSED REDUCTION AC JOINT ??? TONSILLECTOMY No Known Allergies HOME MEDICATIONS : acetaminophen (TYLENOL) 500 mg tablet ANASTROZOLE ORAL cyanocobalamin (Vitamin B-12) 1,000 mcg tablet ibuprofen (ibuprofen) 200 mg tab/cap INV-SLCH K27M/TT peptide ([id number]) vaccine metoprolol (LOPRESSOR) 25 mg tablet multivit-min/folic/vit K/lycop (MEN'S MULTIVITAMIN ORAL) prasterone, dhea, 25 mg capsule testosterone cypionate (DEPO-TESTOTERONE) 100 mg/mL injection UNABLE TO FIND vitamin D3/vitamin K2, MK4, (K2 PLUS D3 ORAL) Current Outpatient Medications: ??? acetaminophen (TYLENOL) 500 mg tablet ??? ANASTROZOLE ORAL ??? cyanocobalamin (Vitamin B-12) 1,000 mcg tablet ??? ibuprofen (ibuprofen) 200 mg tab/cap ??? INV-SLCH K27M/TT peptide ([id number]) vaccine ??? metoprolol (LOPRESSOR) 25 mg tablet ??? multivit-min/folic/vit K/lycop (MEN'S MULTIVITAMIN ORAL) ??? prasterone, dhea, 25 mg capsule ??? testosterone cypionate (DEPO-TESTOTERONE) 100 mg/mL injection ??? UNABLE TO FIND ??? vitamin D3/vitamin K2, MK4, (K2 PLUS D3 ORAL) Social History Tobacco Use Smoking Status Never Smoker Smokeless Tobacco Never Used Substance and Sexual Activity Alcohol Use Yes ??? Frequency: Never Comment: 6-12 drinks/week Substance and Sexual Activity Drug Use Never History reviewed. No pertinent family history. PAT Physical Exam Airway Exam: Mallampati: III Cervical ROM: FROM Cardiovascular Exam: Rate: regular Rhythm: regular Pulmonary Exam: LCTA, bilat Vitals: 04/05/19 1525 04/05/19 1528 04/05/19 1530 BP: (!) 150/105 140/89 150/98 Pulse: 80 Resp: 18 SpO2: 97% PT: No results found for requested labs within last 720 hours. INR: No results found for requested labs within last 720 hours. APTT: No results found for requested labs within last 720 hours. Hgb A1C: No results found for requested labs within last 720 hours. CBC RBC: No results found for requested labs within last 720 hours. RDW: No results found for requested labs within last 720 hours. MCHC: No results found for requested labs within last 720 hours. MCH: No results found for requested labs within last 720 hours. MCV: No results found for requested labs within last 720 hours. Hct: No results found for requested labs within last 720 hours. Hgb: No results found for requested labs within last 720 hours. WBC: No results found for requested labs within last 720 hours. MPV: No results found for requested labs within last 720 hours. Platelets: No results found for requested labs within last 720 hours. RDW CV: No results found for requested labs within last 720 hours. RDW Sd: No results found for requested labs within last 720 hours. BMP Glucose: No results found for requested labs within last 720 hours. Calcium: No results found for requested labs within last 720 hours. Sodium: No results found for requested labs within last 720 hours. Potassium: No results found for requested labs within last 720 hours. CO2: No results found for requested labs within last 720 hours. Chloride: No results found for requested labs within last 720 hours. BUN: No results found for requested labs within last 720 hours. Creatinine: No results found for requested labs within last 720 hours. Martha index score: 100 Anesthesia Plan documented in this encounter Nursing Notes * Sol Esposito RN - 04/22/2019 12:20 PM CDT Teaching and instructions given to patient and spouse. All questions answered at this time. Red booklet given. Waiting for filled prescriptions. * Isha Layne RN - 04/22/2019 10:40 AM CDT Surgeon discussed with patient that to stop Testerone inj because it will increase blood clot risk.Pt shows understanding. 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 Item Serial No. Information Technology Consultant Lot No. LRB No. Used [employer] [id number] BIORAPTOR KNOTLESS INNER LOCK PLUG CONTROLLABLE TENSION ECOLOGY PROFESSOR - [id number] [employer] [id number] Bioraptor Knotless Inner Lock Plug Controllable Tension Speech Pathologist Assistant [employer] [id number] Right 2 [employer] AR-1938PS KNOTLESS SUTURETAK FIBERWIRE 3MM 12.7MM 2 ANCHOR SUTURE PEEK - [id number] [employer] AR-1938PS Knotless Suturetak Fiberwire 3mm 12.7mm 2 [place] Suture Peek [employer] [id number] [employer] AR-1938PS KNOTLESS SUTURETAK FIBERWIRE 3MM 12.7MM 2 ANCHOR SUTURE PEEK - [id number] [employer] AR-1938PS Knotless Suturetak Fiberwire 3mm 12.7mm 2 [place] Suture Peek [employer] [id number] [employer] [id number] BIORAPTOR KNOTLESS INNER LOCK PLUG CONTROLLABLE TENSION ECOLOGY PROFESSOR - [id number] [employer] [id number] Bioraptor Knotless Inner Lock Plug Controllable Tension Speech Pathologist Assistant [employer] Right 1 Blood/Blood Products Transfused: 0 mls Complications: None Condition on Discharge from the operating room was stable Jose Rogers MD Date: 04/22/2019 Time: 10:15 AM No Resident involved on case Cosigned by David Mathias MD at 04/22/2019 12:44 PM CDT * Op Note - David Mathias MD - 04/22/2019 12:00 AM CDT Attending Physician David Mathias MD First Sales Agent Trading Stamps Jose Rogers MD Preoperative Diagnoses 1. Right hip labral tear. 2. 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 Postoperative Diagnoses 1. Right hip labral tear. 2. 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 Name Of Operation 1. Right hip arthroscopy. 2. Complete arthroscopic synovectomy. 3. Acetabular rim osteoplasty. 4. Labral repair. 5. Acetabular chondroplasty. 6. Femoral head and neck reshaping, Horacio procedure, performed arthroscopically. Indications For Procedure The patient has had longstanding hip and groin pain for some time. The patient was seen in my outpatient clinic. The patient had an MRI and clinical examination findings consistent with a labral tearand femoral acetabular impingement. The patient understood the risks, benefits, complications and al ternatives. The patient had failed injections and nonoperative treatment, and wished to proceed with surgery. Description Of Procedure The patient was identified in the preoperative holding area. All necessary informed consents were obtained. The patient's correct operative site was marked. He was taken to the operating room and hadsuccessful general anesthesia started. Then a Ocampo catheter was placed and perioperative antibiotics given. The patient's hip was prepped and draped in the usual sterile fashion. Utilizing anterolateral, posterolateral, and anterior working portals, we performed a diagnostic arthroscopy. It revealed extensive synovitis throughout the joint. There was an anterior/superior lateral labral tear withgrade 2 chondromalacia in the same zones at the labral/chondral junction of approximately 25%. The labrum was healthy posteriorly. The cartilage of the femoral head was pristine. At the head and neckjunction, we could see that there was reduced head and neck offset with a CAM-type lesion. The ligamentum teres was probed and found to be synovitic, but otherwise normal and not torn. After performing the diagnostic arthroscopy, we then performed a complete synovectomy using our arthroscopic equipment. We then opened the anterior capsule and performed: 1. A rim osteoplasty at the bony insertion of the labrum. 2. We repaired the labrum with 5 suture anchors. We assessed the labral repair and it had excellentstability. 3. We then used biters and jean to treat the acetabular chondromalacia and get it back to a healthy stable rim. After completing the work in the central compartment we then turned our attention to the peripheralcompartment and the head and neck junction. We debrided some of the anterior capsule to allow us tofurther visualize this. Then using a combination of burs and jean, we performed an arthroscopic Horacio procedure to reshape the head and neck region. We checked this both using arthroscopic and fluoroscopic imaging to ensure improvement in impingement lesion. We were able to restore the normal head and neck offset. We then irrigated out the hip with several liters. We closed the arthroscopic portals with 2-0 and 3-0 Monocryl. Steri-Strips, ABDs, and tape were utilized for dressing. The patient was taken to the recovery room after arousing from general anesthesia, in stable condition. Specimens Removed No specimens. Estimated Blood Loss Minimal. Intraoperative Fluids 1800 mL. Complications No complications. Operative Findings None. Sponge/Instrument/Needle Counts Instrument and needle counts were correct x2. Condition On Discharge From Operating Room The patient's disposition was stable to recovery. Present Statement Please note I was the attending of record. I was present for the critical portions of the case including the diagnostic arthroscopy, the labral work, the central and peripheral work, and the assessment of the impingement arthroscopically and fluoroscopically. Dr. Jose Rogers was immediately available for all noncritical portions of the procedure. Addendum Dr. Jose Rogers, a fellow in joint reconstructive and joint preservation surgery, was present for this procedure. His assistance was medically necessary as there was no qualified orthopedic resident available. His activities included helping with the establishment of the arthroscopic portals, maintenance of the camera and manipulation of the leg so I could perform the critical portions of the procedure, and help with wound closure at the end. Job ID/VF Job ID: [id number] documented in this encounter Plan of Treatment Not on file documented as of this encounter Procedures Procedure Name Priority Date/Time Associated Diagnosis Comments FL FLUOROSCOPY < 1 HOUR IP Routine 04/22/2019 10:22 AM CDT ARTHROSCOPY HIP - OPEN HIP OSTEOPLASTY 04/22/2019 7:21 AM CDT Labral tear of hip, degenerative Case Notes Line up complete per [facility] 04/13 ARTHROSCOPY HIP - LABRAL REPAIR 04/22/2019 7:21 AM CDT Labral tear of hip, degenerative Case Notes Line up complete per adrianne [facility] 04/13 documented in this encounter Results * FL Fluoroscopy < 1 Hour (04/22/2019 10:22 AM CDT) Narrative [facility] - 04/22/2019 10:23 AM CDT The images from this study are not interpreted by Radiology. ??Please refer to the physician's procedure / OR operative note. us David Mathias MD IMG FLUOROSCOPY PROCEDURE S Final Result [facility] documented in this encounter Visit Diagnoses Diagnosis Labral tear of hip, degenerative- Primary documented in this encounter Admitting Diagnoses Diagnosis Labral tear of hip, degenerative documented in this encounter Administered Medications Inactive Administered Medications - up to 3 most recent administrations Medication Order MAR Action Action Date Dose Rate Site HYDROcodone-acetaminophen (NORCO) 5-325 mg per tablet 1 tablet 1 tablet, oral, Once, On Thu04/22/19 at 1145, For 1 dose, Phase I & Post-op Floor, Indications: PainIndications:Pain Given 04/22/2019 11:15 AM CDT 1 tablet Lactated Ringer's (LR) infusion 30 mL/hr, intravenous, Continuous, Starting on Thu04/22/19 at 0615, Pre-Op New Bag 04/22/2019 8:40 AM CDT Rate/Dose Verify 04/22/2019 7:19 AM CDT 30 mL/h r New Bag 04/22/2019 6:42 AM CDT 30 mL/hr 30 mL/hr documented in this encounter Discontinued Medications Medication Sig Discontinue Reason Start Date End Da te testosterone cypionate (DEPO-TESTOTERONE) 100 mg/mL injectionIndications: Androgen Deficiency,on THURSDAY Inject 100 mg into the muscle as instructed once a week Stop Taking at Discharge 04/22/2019 prasterone, dhea, 25 mg capsule Take 1 capsule by mouth daily after lunch Stop Taking at Discharge 04/22/2019 UNABLE TO FIND Inject 1 each under the skin 2 (two) times a week Med Name: HCG 25mg twice weekly, on Thursday and Thursday Stop Taking at Discharge 04/22/2019 ANASTROZOLE ORALIndications: Take 1 tablet by mouth once a week Stop Taking at Discharge 04/22/2019 ibuprofen (ibuprofen) 200 mg tab/capIndications:Pa in Take 600 mg by mouth every 6 (six) hours as needed for pain Stop Taking at Discharge 04/22/2019 acetaminophen (TYLENOL) 500 mg tabletIndications:Bobby n Take 1,000 mg by mouth every 6 (six) hours as needed for pain Stop Taking at Discharge 04/22/2019 INV-SLCH K27M/TT peptide (LEEB655) vaccine Inject 0.8 mL into the muscle as instructed once Stop Taking at Discharge 04/22/2019 documented as of this encounter Active and Recently Administered Medications Times are shown in CDT. Scheduled Medication Order 04/20/2019 04/21/2019 04/22/2019 ceFAZolin (ANCEF) 2,000 mg/20 mL in sterile water (premix) 2,000 mg (COMPLETED) 2,000 mg, intravenous, at 400 mL/hr, Administer over 3 Minutes, Once, On Thu04/22/19 at 0615, For 1 dose, Pre-Op, Administer within 60 minutes of incision., Indications: Prophylaxis, Surgical 0832 (Given - Provid er: Sandra Roca CRNA) EPINEPHrine 2 mg in Lactated Ringer's (LR) 3,000 mL irrigation solution (COMPLETED) irrigation, Once, On Thu04/22/19 at 0745, For 1 dose, Intra-Op 0745 (Due)0821 (Give n - Provider: David Mathias MD - Comment: scope fluid) HYDROcodone-acetaminophen (NORCO) 5-325 mg per tablet 1 tablet (COMPLETED) 1 tablet, oral, Once, On Thu04/22/19 at 1145, For 1 dose, Phase I & Post-op Floor, Indications: Pain 1115 (Given - Provid er: Sol Esposito, TACOS) Continuous Medication Order 04/20/2019 04/21/2019 04/22/2019 Lactated Ringer's (LR) infusion 30 mL/hr, intravenous, Continuous, Starting on Thu04/22/19 at 0615, Pre-Op 0642 (New Bag - Prov ider: Selina Carreno RN)0719 (Rate/Dose Verify - Provider: Sandra Roca CRNA)0840 (New Bag - Provider: Sandra Roca CRNA)0900 (Anesthesia Volume Adjustment - Provider: Sandra Roca CRNA)1001 (Anesthesia Volume Adjustment - Provider: Sandra Roca CRNA)1222 (Stopped - Provider: Sol Esposito RN) PRN Medication Order 04/20/2019 04/21/2019 04/22/2019 bupivacaine (MARCAINE) 0.25 % (2.5 mg/mL) preservative free injection (CANCELED) As needed, Starting on Thu04/22/19 at 1020, Intra-Op 1020 (Given - Provid er: David Mathias MD - Comment: inejcted prior to closure) diphenhydrAMINE (BENADRYL) injection 12.5 mg 12.5 mg, intravenous, Administer over 2 Minutes, Every 15 min PRN, itching, Starting on Thu04/22/19 at 1018, For 2 doses, Phase I, Max cumulative dose 50 mg., Indications: Itching fentaNYL (SUBLIMAZE) preservative free injection 50 mcg 50 mcg, intravenous, Once as needed, uncontrolled pain on PACU admission, Starting on Thu04/22/19 at 1018, For 1 dose, Phase I, Then proceed to PACU 1st line analgesic., Indications: Pain haloperidol (HALDOL) injection 1 mg 1 mg, intravenous, Administer over 5 Minutes, Once as needed, nausea, vomiting, Starting on Thu04/22/19 at 1018, For 1 dose, Phase I, If nausea/vomiting not relieved by ondansetron within 30 minutes or if ondansetron has been given within the last 6 hours. HYDROmorphone (DILAUDID) injection 0.2 mg 0.2 mg, intravenous, Administer over 2 Minutes, Every 10 min PRN, 1st line for pain, Starting on Thu04/22/19 at 1018, Phase I, Switch to 2nd line analgesic order if pain is uncontrolled or increasing after 2 doses. Notify Anesthesiologist if total PACU dose reaches 2 mg and pain score 5/10 or more., Indications: Pain HYDROmorphone (DILAUDID) injection 0.4 mg 0.4 mg, intravenous, Administer over 2 Minutes, Every 10 min PRN, 2nd line for pain, Starting on Thu04/22/19 at 1018, Phase I, May administer 10 mintes after 2nd dose of 1st line analgesic agent for uncontrolled or increasing pain. Revert to 1st line dose if POSS of 3. Notify Anesthesiologist if total PACU dose reaches 2 mg and pain score 5/10 or more., Indications: Pain Lactated Ringer's (LR) irrigation (CANCELED) As needed, Starting on Thu04/22/19 at 0821, Intra-Op 0821 (Given - Provid er: David Mathias MD - Comment: placed on sterile field; used PRN)1000 (Given - Provider: David Mathias MD - Comment: scope fluid) meperidine (DEMEROL) preservative free injection 12.5 mg 12.5 mg, intravenous, Every 10 min PRN, shivering, Starting on Thu04/22/19 at 1018, For 2 doses, Phase I, Max cumulative dose 25 mg., Indications: Shivering naloxone (NARCAN) 0.4 mg/mL injection 0.04-0.4 mg 0.04-0.4 mg, intravenous, Once as needed, other, excessive sedation/respiratory depression, Starting on Thu04/22/19 at 1018, For 1 dose, Phase I, Dilute 0.4 mg with 9 mL NS (final concentration 0.04 mg/mL). For respiratory depression (respiratory rate less than 6), administer 0.4 mg IVP over 30 seconds. For excessive sedation administer 0.04 mg (1 mL) every 1 minute until desired level of alertness. For IV, administer over 30 seconds., Indications: Opioid Toxicity ondansetron (ZOFRAN) injection 4 mg 4 mg, intravenous, Administer over 2 Minutes, Once as needed, nausea, vomiting, Starting on Thu04/22/19 at 1018, For 1 dose, Phase I, Proceed to haloperidol if ondansetron has been given within the last 6 hours. documented in this encounter Orders Medications Ordered That Burke ht Not Have Been Administered Count Last Ordered Date First Ordered Date bupivacaine (MARCAINE) 0.25 % (2.5 mg/mL) preservative free injection 1 04/22/2019 ceFAZolin (ANCEF) 2,000 mg/2 0 mL in sterile water (premix) 2,000 mg 1 04/22/2019 diphenhydrAMINE (BENADRYL) i njection 12.5 mg 1 04/22/2019 EPINEPHrine 2 mg in Lactated Ringer's (LR) 3,000 mL irrigation solution 1 04/22/2019 fentaNYL (SUBLIMAZE) preserv ative free injection 50 mcg 1 04/22/2019 haloperidol (HALDOL) injection 1 mg 1 04/22 HYDROmorphone (DILAUDID) injection 0.2 mg 1 04/22/2019 HYDROmorphone (DILAUDID) injection 0.4 mg 1 04/22/2019 Lactated Ringer's (LR) irrigation 1 019 meperidine (DEMEROL) preserv ative free injection 12.5 mg 1 04/22/2019 naloxone (NARCAN) 0.4 mg/mL injection 0.04-0.4 mg 1 04/22/2019 ondansetron (ZOFRAN) injection 4 mg 1 04/22 scopolamine patch 72 hour 1 patch 1 019 sodium chloride 0.9% flush 0.5-20 mL 2 10/2018 Diet Count Last Ordered Date First Orde red Date ADULT DISCHARGE DIET 1 04/22/2019 Nursing Count Last Ordered Date First Orde red Date ACTIVITY 1 04/22/2019 APPLY ICE TO AFFECTED AREA 1 04/22/2019 DISCHARGE INSTRUCTIONS 5 04/22/2019 ELEVATE EXTREMITY 1 04/22/2019 NURSING COMMUNICATION 2 04/22/2019 WOUND CARE 1 04/22/2019 documented in this encounter Care Teams Slot Floor Attendant Relationship Specialty Start Date End Date Ivanna Wadsworth NP [address] [id number] PCP - General Nurse Practitioner 12/17/18 documented as of this encounter
--- OUTSIDE RECORDS SUMMARY | 2024-10-03 03:46 | XMS_ITS | Encounter Summary ---
Author Organization [facility] Address [address] [place] [address] Phone Care Team Providers Care Assistant Office Manager Name Role Phone Ivanna Wadsworth Miriam MENAGERIE SUPERINTENDENT Primary Care Provider + Encounter Details Date Type Department Care Team (Late st Contact Info) Description 04/06/2019 Telephone [facility] Orthopaedic [facility] Advanced Medicine 6th [place] [address] [place] [address] Jayna Gutierrez RN Social History Tobacco Use Types Packs/Day Years [...] on file 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 Our copy was sent to stat scanning. documented in this encounter Plan of Treatment Not on file documented as of this encounter Visit Diagnoses Not on filedocumented in this encounter Care Teams Assistant Office Manager Relationship Specialty Start Date End Date Ivanna Wadsworth, MADAI [address] [address] PCP - General Nurse Practitioner 12/17/18 documented as of this encounter
--- OUTSIDE RECORDS SUMMARY | 2024-10-03 03:46 | XMS_ITS | Encounter Summary ---
Author Organization [facility] Address [address] [place] [address] Phone Care Team Providers Care Ventilation Equipment Tender Name Role Phone Ananth Ivanna Miriam BRAKE REPAIR MECHANIC Primary Care Provider + Encounter Details Date Type Department Care Team (Late st Contact Info) Description 04/13/2019 Orders Only [facility] Orthopaedic Surgery [address] [facility] 2nd Floor [address] [place] [phone] David Mathias MD [address] [place] [address] Right hip pain (Primary Dx) Social History [...] on file 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 Gender Identity Not on file Sexual Orientation Not on file documented as of this encounter Ordered Prescriptions Prescription Sig Dispense Quantity Refills Last Filled Start Date End Date naproxen (NAPROSYN) 500 mg tabletIndications: Right hip pain Take 1 tablet (500 mg total) by mouth 2 (two) times a day with meals TAKE 2 WITH BREAKFAST THE DAY BEFORE SURGERY THEN BID 16 tablet 04/13/2019 scopolamine (TRANSDERM-SCOP) 1 mg over 3 days patch 3 dayIndications:Pre vention of Post-Operative Nausea and Vomiting Place 1 patch on the skin once for 1 dose APPLY 1 PATCH BEHIND THE EAR 1 DAY PRIOR TO SURGERY DATE. 1 patch 04/13/2019 9 documented in this encounter Plan of Treatment Not on file documented as of this encounter Visit Diagnoses Diagnosis Right hip pain- Primary Pain in joint, pelvic region and thigh documented in this encounter Care Teams Ventilation Equipment Tender Relationship Specialty Start Date End Date Ivanna Wadsworth NP [address] [address] PCP - General Nurse Practitioner 12/17/18 documented as of this encounter
--- OUTSIDE RECORDS SUMMARY | 2024-10-03 03:46 | XMS_ITS | Encounter Summary ---
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
--- OUTSIDE RECORDS SUMMARY | 2024-10-03 03:46 | XMS_ITS | Encounter Summary ---
Author Organization [facility] Address [address] [place] [address] Care Team Providers Care Floor Steward/Stewardess Name Role Phone Ivanna Wadsworth NP Primary Care Provider + Reason for Visit * Diagnostic Imaging (Routine) - Closed Specialty Diagnoses / Procedures Referred By Mendez t Referred To Contact Diagnoses Femoroacetabular impingement of right hip Right hip pain Procedures XR Hip Right 4 or More Views David Mathias MD Phone: tel: fax: [facility] [id number] [place] [phone] Referral ID Status Reason Start Date Expiration Date Visits Re quested Visits Authorized [id number] Closed 05/18/2019 11/26/2020 1 1 Encounter Details Date Type Department Care Team (Latest Contact Info) Description 05/18/2019 2:00 PM CDT Ancillary Procedure [facility] [address] [place] [address] David Mathias MD [address] [facility] [address] [place] [address] Femoroacetabular impingement of right hip; Right hip pain Discharge Disposition: Discharge to [...] on file 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 ??Interval femoral head/neck osteoplasty for management of cam-type femoroacetabular impingement. Dictated by: Varsha Martin M.D. The radiology attending physician has personally reviewed this study, and had reviewed and/or edited this written report and agrees with it. Electronically signed by: Manolo Jackson M.D. Narrative 05/18/2019 2:42 PM CDT EXAMINATION: 1. ?XR HIP RIGHT 4 OR MORE VIEWS HISTORY: Right Hip Pain FINDINGS: 4 views of the right hip are submitted for interpretation with comparison to prior radiographs dated 03/16/2019. The right hip joint space is normal. ??Alignment of the right hip is normal. ??There has been interval femoral head and neck reshaping. There is no acute fracture. ??Left hip joint space is normal. ??The sclerotic lesions within the left intertrochanteric femur, left pubis and ischium are unchanged and are consistent with bone islands. Procedure Note Manolo Jackson MD - 05/18/2019 EXAMINATION: 1. XR HIP RIGHT 4 OR MORE VIEWS HISTORY: Right Hip Pain FINDINGS: 4 views of the right hip are submitted for interpretation with comparison to prior radiographs dated 03/16/2019. The right hip joint space is normal. Alignment of the right hip is normal. There has been interval femoral head and neck reshaping. There is no acute fracture. Left hip joint space is normal. The sclerotic lesions within the left intertrochanteric femur, left pubis and ischium are unchanged and are consistent with bone islands. IMPRESSION: 1. Interval femoral head/neck osteoplasty for management of cam-type femoroacetabular impingement. Dictated by: Varsha Martin M.D. The radiology attending physician has personally reviewed this study, and had reviewed and/or edited this written report and agrees with it. Electronically signed by: Manolo Jackson M.D. David Mathias MD IMG XR PROCEDURES Final R esult documented in this encounter Visit Diagnoses Diagnosis Femoroacetabular impingement of right hip Right hip pain Pain in joint, pelvic region and thigh documented in this encounter Care Teams Floor Steward/Stewardess Relationship Specialty Start Date End Date Ivanna Wadsworth NP [address] [address] PCP - General Nurse Practitioner 12/17/18 documented as of this encounter
--- OUTSIDE RECORDS SUMMARY | 2024-10-03 03:46 | XMS_ITS | Encounter Summary ---
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
--- OUTSIDE RECORDS SUMMARY | 2024-10-03 03:46 | XMS_ITS | CONTINUITY OF CARE DOCUMENT ---
Author Name heather romero Address Unknown Organization [facility] Address [address] [place] [address] [address] [place] [address] Phone [phone] Care Team Providers Care Change Number Operator Name Role Phone Nadege Pimentel MD Unavailable [phone] Ananth TRUCK SHOP SUPERVISOR-BC, Ivanna L Unavailable [phone] Ananth TRUCK SHOP SUPERVISOR-BC, Ivanna L Unavailable PROBLEMS Condition Status Date Provider Notes Family History of CVA or Stroke: active Nai Quiroz TOOL RADIAL DRILL PRESS SET UP OPERATOR Systolic murmur active Estelita Quiroz TOOL RADIAL DRILL PRESS SET UP OPERATOR Iron, serum, elevated active Estelita Ureña er TOOL RADIAL DRILL PRESS SET UP OPERATOR Hypertension, white coat active Estelita anders TOOL RADIAL DRILL PRESS SET UP OPERATOR Anxiety active Estelita Quiroz TOOL RADIAL DRILL PRESS SET UP OPERATOR Abnormal EKG active Estelita Quiroz TOOL RADIAL DRILL PRESS SET UP OPERATOR Obesity active Estelita Quiroz TOOL RADIAL DRILL PRESS SET UP OPERATOR Low testosterone level active Estelita flores TOOL RADIAL DRILL PRESS SET UP OPERATOR Erectile dysfunction active Estelita Blakely r TOOL RADIAL DRILL PRESS SET UP OPERATOR Hypertension active Estelita Quiroz TOOL RADIAL DRILL PRESS SET UP OPERATOR ENCOUNTERS Date Type Provider Location Encounter Diag nosis - In-person encounter Office Visit Nadege Pimentel MD [facility] - In-person encounter Office Visit Nadege Pimentel MD [facility] HypertensionErectile dysfunctionLow testosterone levelObesityAbnormal EKGAnxietyHypertension, white coatIron, serum, elevatedSystolic murmurFamily History of CVA or Stroke: VITAL SIGNS Date Observation Value Provider Body Mass Index (Ratio) 34.11 kg/m2 Jorge Pimentel MD blood pressure, cuff size regular St nicole uSng blood pressure, diastolic 90 mm[Hg] St nicole Sung blood pressure, systolic 147 mm[Hg] Erik gamez Sung oxygen saturation, oximetry 98 % Katalina Sung respiratory rate E&M 18 /min Katalina jones weight E&M 258.6 [lb_av] Katalinavera Almaraz height E&M 73 [in_i] Katalinavera Almaraz Body Mass Index (Ratio) 33.77 kg/m2 Jorge Pimentel MD blood pressure, cuff size large Dominik srinivas Kat blood pressure, diastolic 110 mm[Hg] Ke rri Shye blood pressure, systolic 155 mm[Hg] Terrence Kat oxygen saturation, oximetry 96 % Naina Kat respiratory rate E&M 16 /min Naina sullivan pulse rate 79 /min Naina lucas weight E&M 256 [lb_av] Naina lucas height E&M 73 [in_i] Naina banguraer ALLERGIES No Known Drug Allergies HISTORY OF MEDICATION USE Medication Status Instructions Dates Provider Indications Com ments sildenafil (pulm.hypertension ) 20 mg tablet active Take 1 tablet by mouth every night 2 hours before sexual activity, do not take more than 2 tabs per day. 7 Nadege Pimentel MD nitroglycerin 0.4 mg tablet, sublingual active Take 1 tablet under tongue as needed for chest pain. Up to 3 tablets per episode (5 min apart). If no relief, go to ER. 2 Estelita Quiroz NP Norvasc 5 mg tablet active 1 tablet by mouth once a day 2 Angel Oweny 2.4 mg/0.75 mL pen injector active INJECT 2.4 MG ONCE A WEEK SUBCUTANEOUSLY. TO BE USED AFTER 1.7 STRENGTH Estelita Quiroz NP losartan 50 mg tablet active Take 1 tablet by mouth twice daily Estelita Quiroz NP alprazolam 0.5 mg tablet active as needed Estelita Quiroz NP SOCIAL HISTORY Date Observation Value Provider smoking status Never smoker Katalina Sung smoking status Never smoker Naina Paynejacque silverio FAMILY HISTORY Family Member Condition Maternal Grandmother Family History of C VA or Stroke: INSURANCE PROVIDERS Payer name Policy type / Coverage type [place] [employer] party ID [id number] ADVANCE DIRECTIVES Name Date DISCUSSED - NO DECISION MADE TREATMENT PLAN Date Name Performer [id number],C,E CHO trace MR His updated medication list for this problem includes: Nitroglycerin 0.4 Mg Tablet, Sublingual (Nitroglycerin) ..... Take 1 tablet under tongue as needed for chest pain. up to 3 tablets per episode (5 min apart). if no relief, go to er. Losartan 50 Mg Tablet (Losartan) ..... Take 1 tablet by mouth twice daily Nadege Pimentel MD [id number],C,p t has been off testosterone and has been feeling better. Estelita Quiroz NP [id number],C,p t has been keeping log of BP, which reading have been good. SBP 110's-130's. today BP is 147/90, which he contributes to 'white coat syndrome.' Estelita Quiroz NP [id number],C, l abs revealed high iron 226.5, iron sat 54, TIBC 419. H gb 18.3 pt has donated blood x2 since these labs were drawn. r epeat labs were done. will have PCP send over the results. Estelita Quiroz NP [id number],C,E CHO trace MR Estelita Quinterofarrah AJ [id number],C, Nadege hector MD [id number],C,w ill check ECHO, stress test. 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 H is updated medication list for this problem includes: Nitroglycerin 0.4 Mg Tablet, Sublingual (Nitroglycerin) ..... Take 1 tablet under tongue as needed for chest pain. up to 3 tablets per episode (5 min apart). if no relief, go to er. Norvasc 5 Mg Tablet (Amlodipine) ..... 1 tablet by mouth once a day Nadege Pimentel MD [id number],W, B P today: 155/110. adding norvasc. Discussion of benefits for remote patient monitoring took place. Patient gives consent for remote monitoring of physiologic parameters including, but not limited to, weight, blood pressure, pulse oximetry, respiratory flow rate. chol 141, trig 60, HDL 55, LDL 74 His updated medication list for this problem includes: Norvasc 5 Mg Tablet (Amlodipine) ..... 1 tablet by mouth once a day Losartan 50 Mg Tablet (Losartan) ..... Take 1 tablet by mouth twice daily BP today: 155/110 Nadege Pimentel MD [id number],C,r ecommend stopping testosterone supplements for now, until further CV testing completed. labs revealed high iron 226.5, iron sat 54, TIBC 419. H gb 18.3 ALP 42.8, SLT 23, AST 22, VIT D 50, CORTISOL 7.01, TESTOSTERONE TOTAL 803, testerone free 21.9 TSH 2.53, T4 0.94, T3 3.49, MG 1.9 Estelita Richie AJ [id number],C,l abs revealed high iron 226.5, iron sat 54, TIBC 419. H gb 18.3 Estelita Richie AJ [id number],C, B P today: 155/110. adding norvasc. Discussion of benefits for remote patient monitoring took place. Patient gives consent for remote monitoring of physiologic parameters including, but not limited to, weight, blood pressure, pulse oximetry, respiratory flow rate. chol 141, trig 60, HDL 55, LDL 74 His updated medication list for this problem includes: Norvasc 5 Mg Tablet (Amlodipine) ..... 1 tablet by mouth once a day Losartan 50 Mg Tablet (Losartan) ..... Take 1 tablet by mouth twice daily Estelita Blakelydelisa AJ [id number],C,l abs revealed high iron 226.5, iron sat 54, TIBC 419. Estelita Blakelydelisa AJ [id number],C,check ECHO. J kori Blakelydelisa AJ [id number],C,w ill check ECHO, stress test. 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 Estelita Quinterofarrah AJ [id number],C,r ecommend stopping testerone for now, until further CV testing completed. Estelita Blakelydelisa AJ [id number],C, B P today: 155/110. adding norvasc. Discussion of benefits for remote patient monitoring took place. Patient gives consent for remote monitoring of physiologic parameters including, but not limited to, weight, blood pressure, pulse oximetry, respiratory flow rate. H is updated medication list for this problem includes: Norvasc 5 Mg Tablet (Amlodipine) ..... 1 tablet by mouth once a day Losartan 50 Mg Tablet (Losartan) ..... Take 1 tablet by mouth twice daily Estelita Quiroz NP Cardiology:ECHO trac e MR His updated medication list for this problem includes: Nitroglycerin 0.4 Mg Tablet, Sublingual (Nitroglycerin) ..... Take 1 tablet under tongue as needed for chest pain. up to 3 tablets per episode (5 min apart). if no relief, go to er. Losartan 50 Mg Tablet (Losartan) ..... Take 1 tablet by mouth twice daily Nadege Pimentel MD Cardiology:pt has be en off testosterone and has been feeling better. Estelita Quiroz NP Cardiology:pt has be en keeping log of BP, which reading have been good. SBP 110's-130's. today BP is 147/90, which he contributes to 'white coat syndrome.' Estelita Quinterofarrah AJ Cardiology: l abs revealed high iron 226.5, iron sat 54, TIBC 419. H gb 18.3 pt has donated blood x2 since these labs were drawn. r epeat labs were done. will have PCP send over the results. Estelita Richie AJ Cardiology:ECHO trac e MR Estelita Quinterofarrah AJ cardiology Nadege cisneros MD cardiology:will chec k ECHO, stress test. 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 H is updated medication list for this problem includes: Nitroglycerin 0.4 Mg Tablet, Sublingual (Nitroglycerin) ..... Take 1 tablet under tongue as needed for chest pain. up to 3 tablets per episode (5 min apart). if no relief, go to er. Norvasc 5 Mg Tablet (Amlodipine) ..... 1 tablet by mouth once a day Nadege Pimentel MD cardiology: B P today: 155/110. adding norvasc. Discussion of benefits for remote patient monitoring took place. Patient gives consent for remote monitoring of physiologic parameters including, but not limited to, weight, blood pressure, pulse oximetry, respiratory flow rate. chol 141, trig 60, HDL 55, LDL 74 His updated medication list for this problem includes: Norvasc 5 Mg Tablet (Amlodipine) ..... 1 tablet by mouth once a day Losartan 50 Mg Tablet (Losartan) ..... Take 1 tablet by mouth twice daily BP today: 155/110 Nadege Pimentel MD cardiology:recommend stopping testosterone supplements for now, until further CV testing completed. labs revealed high iron 226.5, iron sat 54, TIBC 419. H gb 18.3 ALP 42.8, SLT 23, AST 22, VIT D 50, CORTISOL 7.01, TESTOSTERONE TOTAL 803, testerone free 21.9 TSH 2.53, T4 0.94, T3 3.49, MG 1.9 Estelita Quiroz NP cardiology:labs reve aled high iron 226.5, iron sat 54, TIBC 419. H gb 18.3 Estelita Quiroz NP cardiology: B P today: 155/110. adding norvasc. Discussion of benefits for remote patient monitoring took place. Patient gives consent for remote monitoring of physiologic parameters including, but not limited to, weight, blood pressure, pulse oximetry, respiratory flow rate. chol 141, trig 60, HDL 55, LDL 74 His updated medication list for this problem includes: Norvasc 5 Mg Tablet (Amlodipine) ..... 1 tablet by mouth once a day Losartan 50 Mg Tablet (Losartan) ..... Take 1 tablet by mouth twice daily Estelita Quiroz NP cardiology:labs reve aled high iron 226.5, iron sat 54, TIBC 419. Estelita Quiroz NP cardiology:check ECHO. Estelita Quiroz NP cardiology:will chec k ECHO, stress test. 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 Estelita Quiroz NP cardiology:recommend stopping testerone for now, until further CV testing completed. Estelita Quiroz NP cardiology: B P today: 155/110. adding norvasc. Discussion of benefits for remote patient monitoring took place. Patient gives consent for remote monitoring of physiologic parameters including, but not limited to, weight, blood pressure, pulse oximetry, respiratory flow rate. H is updated medication list for this problem includes: Norvasc 5 Mg Tablet (Amlodipine) ..... 1 tablet by mouth once a day Losartan 50 Mg Tablet (Losartan) ..... Take 1 tablet by mouth twice daily Estelita Quiroz NP Date Name Complete Echo Stress Echo RPM (remote patient monitoring) HISTORY OF PROCEDURES Procedure Date Procedure Name Provider Procedure Notes S tatus Schedule Followup Nadege Pimentel MD 1 year. completed EKG Nadege Pimentel MD comp leted Schedule Followup Nadege Pimentel MD 1 month completed EKG Nadege Pimentel MD comp leted
--- OUTSIDE RECORDS SUMMARY | 2024-10-03 03:46 | XMS_ITS | Encounter Summary ---
Author Organization [facility] Address [address] [place] [address] Phone Care Team Providers Care Handicraft Or Hobby Shop Manager Name Role Phone Brianna Wadsworth CLINICAL REVIEWER Primary Care Provider + Reason for Referral * Diagnostic Imaging (Routine) - Closed Specialty Diagnoses / Procedures Referred By Contac t Referred To Contact Diagnoses Right hip pain Procedures XR Hip Right 4 or More Views David Mathias MD Phone: tel: fax: [place] [phone] [address] Referral ID Status Reason Start Date Expiration Date Visits Re quested Visits Authorized [id number] Closed 02/25/2019 09/05/2020 1 1 Reason for Visit * Reason Comments Pain Encounter Details Date Type Department Care Team (Late st Contact Info) Description 03/16/2019 2:00 PM CDT Office Visit [facility] Orthopaedic Surgery [address] [place] [address] [address]nd [address] [place] [id number] David Mathias MD [address] [place] [address] Right hip pain (Primary Dx) [...] on file Legal Sex Male 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 HISTORY OF PRESENT ILLNESS: Roel is a 43-year-old male who presents with a chief complaint of right hip pain for the past 20 years, worse over the past 5 years. Of note, the patient recently saw Neeraj who referred the patient to our clinic for evaluation of hisright labral tear. Briefly, the patient reports that he began to develop hip pain 20 years ago while in the . He denied any specific injuries or events associated with the pain. His pain worsened over the past 5 years and he was actually evaluated at the [place] where an [place] arthrogram of the hip was obtained. There were recommendations at that time for a hip scope, labral repair, osteoplasty. The patient reports that his pain is located over the anterior aspect of his hip. He feels that it is very limiting in terms of his activities. He is no longer is able to work out and is unable to doactivities that he enjoys such as running and squats. 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 In regards to his pain, it is achingin nature. It is moderate in severity. The pain is relieved with rest. The pain is exacerbated withmovement and increased activities. His pain is continuous but it is primarily activity related. It does not wake him up at night. Treatments that he has tried for it include ibuprofen which he reports helps slightly with the pain. He has also had two injections into his right hip, once in 2015 and once in 2016 with brief relief of his pain at that time. The patient denies any prior surgeries to his right hip. He denies any numbness or tingling down his right lower extremity. DENNIS HIP SCORE: Pain: Mild to moderate on the right side. Limp: None. Support: None. Distance: unlimited. Stairs: Uses bannister for right side. Sitting: Can sit in a chair for half an hour. Shoes/Socks: Easy on the right side. Public Transportation: Yes. PAST MEDICAL HISTORY: Hypertension. PAST SURGICAL HISTORY: Tonsillectomy. INITIAL REVIEW OF MEDICATIONS: Testosterone. DRUG ALLERGIES: No known drug allergies. 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 He is .He does not smoke. He uses alcohol socially. He denies any drug use. FAMILY HISTORY: Reviewed, no pertinent family history. REVIEW OF SYSTEMS: A full system review was performed and unremarkable. PHYSICAL EXAMINATION: General: The patient is 73 inches tall and weighs 258 pounds with a BMI of 32.25. No acute distress. Alert and oriented x3. Nonlabored respirations. Musculoskeletal: Focused examination of the right lower extremity demonstrates flexion from 0 to 90degrees, an IRF at 90 of 10 degrees, ERF at 90 of 50 degrees, abduction 30 degrees with pain at abduction and internal rotation, adduction at 10 degrees, ERE of 20 degrees, JANELL of 0. This is comparedto his left side where he is able to flex from 0 to 120 degrees, IRF at 90 of 20 degrees, ERF at 90of 45 degrees, abduction 40, adduction 15, ERE of 20, JANELL of 5. Positive FADIR. Positive anterior impingement. Positive psoas pain. Sensation is intact to light touch in the superficial peroneal, deep peroneal, sural, saphenous, and tibial nerve distributions. He has 5/5 strength in iliopsoas, quads, hamstrings, tib-ant, EHL, FHL, and gastrocsoleus complex. His foot is warm and well perfused. REVIEW OF X-RAY/STUDIES: X-rays of the right hip obtained at today's clinic visit demonstrate decreased head and neck offset. There is no evidence of osteoarthritis. MRI with contrast obtained on 01/21/2019 was also revieweddemonstrating a labral tear. IMPRESSION/DIAGNOSIS: Mr. 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 TREATMENT PLAN: We reviewed the imaging and exam findings with Roel at today's clinic visit. We discussed the natural history and etiology of ERICK secondary to a cam deformity and labral tears and reviewed various treatment options. Given his history, exam findings, imaging findings, and the fact that his hip has been very bothersome despite conservative management, we discussed that he would be a good candidate for a right hip scope, labral repair and osteochondroplasty. We reviewed the risks, benefits, alternatives, and complications with regards to these procedures. We did note that we would like to obtain his MR arthrogram of his hip for review to evaluate the cartilage of his hip. The patient will work to get this to us. The patient is in understanding of the risks and would like to proceed with scheduling surgery at the nearest possible date. We will have the patient see Adrianne for surgery scheduling. We also discussed that he would possibly need to see Anesthesia for clearance. The patient is happy and in agreement with this plan. All of his questions and concerns were answered at today'sclinic visit. We will plan to see the patient on the day of surgery. FOLLOW-UP: At time of surgery. Please refer to Dr. Mathias's addendum for additional treatment plan information. Dictated by: Jessica Xie M.D. ATTENDING ADDENDUM The patient's history and physical examination have been dictated by Dr. Jessica Xie. I have independently performed a history and physical examination, and I agree with the findings. ELECTRONICALLY SIGNED - 03/21/2019 04:04 PM David Mathias MD [employer] Joint Preservation, Resurfacing and Replacement Service [facility] MM/RN/bl cc: MD BRIANNA WILLS NP documented in this encounter Plan of Treatment Not on file documented as of this encounter Results * XR Hip Right 4 or More Views (03/16/2019 1:49 PM CDT) Anatomical Region Laterality Modality Lower Extremities, Hip, Pelvis Right C omputed Radiography 03/16/2019 1:56 PM CDT Impressions 03/16/2019 1:56 PM CDT 1. 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 Electronically signed by: Arnav Roche M.D. Narrative 03/16/2019 1:56 PM CDT EXAMINATION:XR [...] representing a bone island Procedure Note Arnav Roche MD - 03/16/2019 EXAMINATION:XR HIP RIGHT 4 [...] hip joint space. Electronically signed by: Arnav Roche M.D. David Mathias MD IMG XR PROCEDURES Final R esult documented in this encounter Visit Diagnoses Diagnosis Right hip pain- Primary Pain in joint, pelvic region and thigh Right hip pain Pain in joint, pelvic region and thigh documented in this encounter Orders General Supply Count Last Ordered Date First Or dered Date CPM 03/16/2019 documented in this encounter Care Teams Handicraft Or Hobby Shop Manager Relationship Specialty Start Date End Date Brianna Wadsworth NP [address] [phone] PCP - General Nurse Practitioner 12/17/18 documented as of this encounter
--- OUTSIDE RECORDS SUMMARY | 2024-10-03 03:46 | XMS_ITS | Encounter Summary ---
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 OPERATOR Primary Care Provider + Encounter Details Date Type Department Care Team (Late st Contact Info) Description 04/22/2019 7:19 AM CDT Anesthesia Event [facility] Operating Room [address] [place] [address] Booker Hernandez MD [address] [place] [address] Harini Charlton MD [address] [place] [address] Anesthesia Record Procedure Summary Procedure Name Responsible Anesthesiologist Anesthesia Start Time Anesthesia Stop Time ARTHROSCOPY HIP - LABRAL REPAIR hip scope, osteo, scottie repair (Right: Hip) Booker Hernandez MD 04/22/19 0719 04/22/19 1027 Events Date Time Event Comment 04/22/2019 0645 0719 An Start 0721 In Room 0724 An Start Data 0727 An Induction The patient was reevaluated immediately before moderate or deep sedation use and before anesthesia induction. 0741 An Intubation 0748 Anesthesia Ready 0805 Quick Note Recruitment man euver: [id number] for 15 seconds X2 0835 Proc Start 0836 Incision Start 0845 Quick Note Recruitment man euver at [id number] for 15 seconds x2 0948 Quick Note Cypress placed around head 0953 Quick Note Recruitment man euver at [id number] for 20 seconds 1005 Proc Fin 1015 An Extubation 1019 Out of Room 1019 an stop data 1027 Handoff to RN I completed my handoff to the receiving nurse during which we: 1. Patient identified 2. Responsible provider identified 3. Pertinent medical history reviewed 4. Procedure type and surgical course discussed 5. Intraoperative anesthetic management and any significant issues discussed 6. Expectations and concerns for postop period discussed 7. Questions solicited from receiving nurse 8. Patient disposition at the time of handoff: PACU 1027 An Stop 1133 Release from care Meds Name Total midazolam PF 2 mg lidocaine 1 % PF 100 mg fentaNYL 200 mcg propofol 180 mg rocuronium 100 mg phenylephrine 100 mcg/mL 1,700 mcg HYDROmorphone 2 mg/mL 0.6 mg ondansetron PF (ZOFRAN) 2 mg/mL injectio n 4 mg glycopyrrolate 0.8 mg neostigmine injection 1 mg/mL 5 mg dexamethasone 4 mg/ml 12 mg ceFAZolin (ANCEF) 2,000 mg/20 mL in ster ile water (premix) 2,000 mg 2,000 mg famotidine PF 20 mg Lactated Ringer's (LR) infusion 1,500 mL * Agents Name O2% N2O O2 N2O Air Sevoflurane Inspired Sevoflurane * Blood No blood administrations on file. Lines, Drains, and Airways Type Details Placement Removal Peripheral IV Placement Date: 04/22/19; Placement Time: 0636; Catheter Size: 20 G; Orientation: Right; Location: Hand; Removal Date: 04/22/19; Removal Time: 1315; Removal Reason: Per protocol 04/22/19 0636 by Selina Carreno RN 04/22/19 1315 by Sol Esposito RN ETT Placement Date: 04/22/19; Placement Time: 0741 (created via procedure documentation); Mask Ventilation: 2; Technique: Direct laryngoscopy; Type: ETT - single; Single Lumen Tube Size: 7.5 mm; Cuffed: Yes; Laryngoscope: Jacquie; Blade Size: 4; Location: Oral; Grade View: Grade IIb; Insertion Attempts: 3 or more; Placement Verification: Auscultation; Airway Comment: First attempt by SHIP LINER with MAC 4 blade, no intubating stylet, cric pressure. Assumed esophageal intubation. Second attempt by SHIP LINER with MAC 3 blade, cric pressure, and intubating style, unable to pass tubes. Grade IIb view. 3rd attempt by MD with MAC 3 blade. 4th attempt by MD with bougie, cric pressure, successful. 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 Gender Identity Not on file Sexual Orientation Not on file documented as of this encounter OR Notes * Anesthesia Postprocedure Evaluation - Shaggy Rawls MD - 04/22/2019 11:33 AM CDT Patient: Roel Dougherty Procedure Summary Date: 04/22/19 Room / Location: [facility] OR POD 2 ROOM 207 / [facility] OR POD 2 Anesthesia Start: 718 Anesthesia Stop: 1026 Procedures: ARTHROSCOPY HIP - LABRAL REPAIR hip scope, osteo, scottie repair (Right Hip) ARTHROSCOPY HIP - HIP OSTEOPLASTY (Right Hip) Diagnosis: Labral tear of hip, degenerative (Labral tear of hip, 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]) Surgeon: David Mathias MD Responsible Provider: Booker Hernandez MD Anesthesia Type: general ASA Status: 2 Anesthesia Type: general Last vitals BP 126/91 Pulse 69 Temp 36.1 ??C (97 ??F) Resp 12 SpO2 98% Anesthesia Post Evaluation Patient location during evaluation: PACU Patient participation: complete - patient participated Level of consciousness: fully awake Pain score: 3 Pain management: adequate Airway patency: adequate Evidence of recall: no Anesthetic complications: no Cardiovascular status: acceptable and hemodynamically stable Respiratory status: room air and acceptable Hydration status: acceptable Pt is: normothermic Nausea/Vomiting status: none Cosigned by Cindi Beverly MD at 04/22/2019 11:42 AM CDT * Anesthesia Procedure Notes - Sandra Roca CRNA - 04/22/2019 7:54 AM CDTAssociated Order(s): Airway Airway Patient location: OR Urgency: elective Date/time: 04/22/2019 7:41 AM Indications for airway management: anesthesia and airway protection Difficult airway: no Staff: Supervising provider: Booker Hernandez MD Placed by: Anesthesiologist: Booker Hernandez MD Emergent airway documentation: Risks and benefits discussed: yes Consent obtained: yes Consent given by: patient Airway prep: Preoxygenated: yes Patient position: ramp Mask difficulty assessment: 2 - vent by mask + OA or adjuvant Spontaneous ventilation during airway: absent Sedation level during airway: GA Final airway details: Final airway type: endotracheal airway Tube type: ETT ETT size: 7.5 mm Cuffed: yes Technique used for successful ETT placement: direct laryngoscopy Devices/Methods used in placement: cricoid pressure, intubating stylet and bougie Insertion site: oral Blade type: Jacquie Blade size: 4 Cormack-Lehane (direct): grade IIb - view of arytenoids or posterior of glottis only Cuff inflated with: air ETT to teeth: 24 cm Placement verified by: auscultation Airway secured with: silk tape Number of attempts: 3 or more Ventilation between attempts: BVM Unsuccessful airway(s) attempted: endotracheal tube Unsuccessful approach(es) for ETT: direct laryngoscopy Additional comments: First attempt by SHIP LINER with MAC 4 blade, no intubating stylet, cric pressure. Assumed esophageal intubation. Second attempt by YESICA with MAC 3 blade, cric pressure, and intubating style, unable to pass tubes. Grade IIb view. 3rd attempt by MD with MAC 3 blade. 4th attempt by MD with bougie, cric pressure, successful. Pt ventilated without difficulty throughout attempts. * Anesthesia Preprocedure Evaluation - Booker Hernandez MD - 04/05/2019 3:48 PM CDT [facility] Preoperative Evaluation Record [facility] ([facility]) Date: 04/05/19 Anesthesia Evaluation Roel Dougherty [...] BP - 78 Pertinent negatives: CAD ; [place] ; DVT/PE; negative for CHF and hyperlipidemia [...] (ibuprofen) 200 mg tab/cap INV-SLCH K27M/TT peptide (XECQ004) vaccine metoprolol (LOPRESSOR) 25 mg tablet multivit-min/folic/vit K/lycop (MEN'S MULTIVITAMIN ORAL) prasterone, dhea, 25 mg capsule testosterone cypionate (DEPO-TESTOTERONE) 100 mg/mL injection UNABLE TO FIND vitamin D3/vitamin K2, MK4, (K2 PLUS D3 ORAL) Current Outpatient Medications: ??? acetaminophen (TYLENOL) 500 mg tablet ??? ANASTROZOLE ORAL ??? cyanocobalamin (Vitamin B-12) 1,000 mcg tablet ??? ibuprofen (ibuprofen) 200 mg tab/cap ??? INV-SLCH K27M/TT peptide ([id number]) vaccine ??? metoprolol (LOPRESSOR) 25 mg tablet [...] last 720 hours. Martha index score: 100 DOS Physical Exam Medical history, medications, and allergies reviewed. Attestation: I endorse the findings of the anesthesia pre-evaluation assessment dated: 04/05/2019. Airway Exam: Mallampati: I Cervical ROM: FROM TM distance: normal Jaw ROM: full Cardiovascular Exam: Rate: regular Rhythm: regular Pulmonary Exam: LCTA, bilat EENT Exam: trachea midline Dental Exam: Appears intact Skin Exam: Skin is warm. Turgor is normal. Abdominal Exam: Abdomen is soft. Current state: Patient's current state is cooperative. Anesthesia Plan ASA 2 Planned anesthesia: General Team communication plan: oral ET tube Induction: Induction: intravenous. Postoperative Plan: Postoperative administration opioids intended. No postoperative mechanical ventilation intended. Patient's planned disposition post procedure is Floor. Planned trial extubation. Informed Consent: Discussed plan with SHIP LINER. Anesthesia plan and risks discussed with patient and spouse. Consent and Attending signature: I and/or my designee have discussed the anesthesia plan, benefits, possible alternatives, parental presence at time of induction (if indicated), and clinically relevant risks that may include dental injury, unintentional awareness, and/or other complications. The patient and/or parent/legal guardian understand, and agree to proceed. All questions answered. documented in this encounter Miscellaneous Notes * Addendum Note - Booker Hernandez MD - 04/22/2019 11:57 AM CDT Addendum created 04/22/19 1157 by Booker Hernandez MD Intraprocedure Event edited documented in this encounter Plan of Treatment Not on file documented as of this encounter Procedures Procedure Name Priority Date/Time Associated Diagnosis Comments NE AN PROCEDURE PLACEHOLDER Routine 04/22/2019 7:54 AM CDT Procedure Note - Sandra Roca CRNA - 04/22/2019 7:54 AM CDTThis note is in progress. Airway Patient location: OR Urgency: elective Date/time: 04/22/2019 7:41 AM Indications for airway management: anesthesia and airway protection Difficult airway: no Staff: Supervising provider: Booker Hernandez MD Placed by: Anesthesiologist: Booker Hernandez MD Emergent airway documentation: Risks and benefits discussed: yes Consent obtained: yes Consent given by: patient Airway prep: Preoxygenated: yes Patient position: ramp Mask difficulty assessment: 2 - vent by mask + OA or adjuvant Spontaneous ventilation during airway: absent Sedation level during airway: GA Final airway details: Final airway type: endotracheal airway Tube type: ETT ETT size: 7.5 mm Cuffed: yes Technique used for successful ETT placement: direct laryngoscopy Devices/Methods used in placement: cricoid pressure, intubating stylet andbougie Insertion site: oral Blade type: Jacquie Blade size: 4 Cormack-Lehane (direct): grade IIb - view of arytenoids or posterior ofglottis only Cuff inflated with: air ETT to teeth: 24 cm Placement verified by: auscultation Airway secured with: silk tape Number of attempts: 3 or more Ventilation between attempts: BVM Unsuccessful airway(s) attempted: endotracheal tube Unsuccessful approach(es) for ETT: direct laryngoscopy Additional comments: First attempt by SHIP LINER with MAC 4 blade, no intubating stylet, cricpressure. Assumed esophageal intubation. Second attempt by SHIP LINER with MAC 3blade, cric pressure, and intubating style, unable to pass tubes. GradeIIb view. 3rd attempt by with MAC 3 blade. 4th attempt by withbougrichard, cric pressure, successful. Pt ventilated without difficultythroughout attempts. NE AN ELECTIVE ENDOTRACHEAL AIRWAY Routine 04/22/2019 7:54 AM CDT Procedure Note - Sandra Roca CRNA - 04/22/2019 7:54 AM CDTThis note is in progress. Airway Patient location: OR Urgency: elective Date/time: 04/22/2019 7:41 AM Indications for airway management: anesthesia and airway protection Difficult airway: no Staff: Supervising provider: Booker Hernandez MD Placed by: Anesthesiologist: Booker Hernandez MD Emergent airway documentation: Risks and benefits discussed: yes Consent obtained: yes Consent given by: patient Airway prep: Preoxygenated: yes Patient position: ramp Mask difficulty assessment: 2 - vent by mask + OA or adjuvant Spontaneous ventilation during airway: absent Sedation level during airway: GA Final airway details: Final airway type: endotracheal airway Tube type: ETT ETT size: 7.5 mm Cuffed: yes Technique used for successful ETT placement: direct laryngoscopy Devices/Methods used in placement: cricoid pressure, intubating stylet andbougie Insertion site: oral Blade type: Jacquie Blade size: 4 Cormack-Lehane (direct): grade IIb - view of arytenoids or posterior ofglottis only Cuff inflated with: air ETT to teeth: 24 cm Placement verified by: auscultation Airway secured with: silk tape Number of attempts: 3 or more Ventilation between attempts: BVM Unsuccessful airway(s) attempted: endotracheal tube Unsuccessful approach(es) for ETT: direct laryngoscopy Additional comments: First attempt by SHIP LINER with MAC 4 blade, no intubating stylet, cricpressure. Assumed esophageal intubation. Second attempt by SHIP LINER with MAC 3blade, cric pressure, and intubating style, unable to pass tubes. GradeIIb view. 3rd attempt by with MAC 3 blade. 4th attempt by withbougie, cric pressure, successful. Pt ventilated without difficultythroughout attempts. documented in this encounter Visit Diagnoses Not on filedocumented in this encounter Administered Medications Inactive Administered Medications - up to 3 most recent administrations Medication Order MAR Action Action Date Dose Rate Site ceFAZolin (ANCEF) 2,000 mg/20 mL in sterile water (premix) 2,000 mg 2,000 mg, intravenous, at 400 mL/hr, Administer over 3 Minutes, Once, On Thu04/22/19 at 0615, For 1 dose, Pre-Op, Administer within 60 minutes of incision., Indications: Prophylaxis, SurgicalIndications:Prophylaxis, Surgical Given 04/22/2019 8:32 AM CDT 2,000 mg dexamethasone (DECADRON) 4 mg/mL injection Administer over 2 Minutes, As needed, Starting on Thu04/22/19 at 0745, Anesthesia Intra-op Given 04/22/2019 8:00 AM CDT 8 mg Given 04/22/2019 7:45 AM CDT 4 mg famotidine (PEPCID) injection Administer over 2 Minutes, As needed, Starting on Thu04/22/19 at 0957, Anesthesia Intra-op Given 04/22/2019 9:57 AM CDT 20 mg fentaNYL (SUBLIMAZE) preservative free injection intravenous, As needed, Starting on Thu04/22/19 at 0727, Anesthesia Intra-op Given 04/22/2019 7:27 AM CDT 150 mcg Given 04/22/2019 7:19 AM CDT 50 mcg glycopyrrolate (ROBINUL) injection intravenous, Administer over 1 Minutes, As needed, Starting on Thu04/22/19 at 1000, Anesthesia Intra-op Given 04/22/2019 10:00 AM CDT 0.8 mg HYDROmorphone (DILAUDID) injection intravenous, Administer over 2 Minutes, As needed, Starting on Thu04/22/19 at 0909, Anesthesia Intra-op Given 04/22/2019 9:09 AM CDT 0.6 mg Lactated Ringer's (LR) infusion 30 mL/hr, intravenous, Continuous, Starting on Thu04/22/19 at 0615, Pre-Op New Bag 04/22/2019 8:40 AM CDT Rate/Dose Verify 04/22/2019 7:19 AM CDT 30 mL/h r New Bag 04/22/2019 6:42 AM CDT 30 mL/hr 30 mL/hr lidocaine PF (XYLOCAINE) 10 mg/mL (1 %) preservative free injection As needed, Starting on Thu04/22/19 at 0727, Anesthesia Intra-op Given 04/22/2019 7:27 AM CDT 100 mg midazolam (VERSED) preservative free injection intravenous, Administer over 2 Minutes, As needed, Starting on Thu04/22/19 at 0719, Anesthesia Intra-op Given 04/22/2019 7:19 AM CDT 2 mg neostigmine (PROSTIGMIN) injection intravenous, Administer over 3 Minutes, As needed, Starting on Thu04/22/19 at 1000, Anesthesia Intra-op Given 04/22/2019 10:00 AM CDT 5 mg ondansetron (ZOFRAN) injection intravenous, Administer over 2 Minutes, As needed, Starting on Thu04/22/19 at 0957, Anesthesia Intra-op Given 04/22/2019 9:57 AM CDT 4 mg phenylephrine (ANDREIA-SYNEPHRINE) 0.5 mg/5 mL (100 mcg/mL) in sodium chloride 0.9% (premix) intravenous, As needed, Starting on Thu04/22/19 at 0800, Anesthesia Intra-op Given 04/22/2019 9:40 AM CDT 200 mcg Given 04/22/2019 9:31 AM CDT 200 mcg Given 04/22/2019 8:43 AM CDT 100 mcg propofol (DIPRIVAN) IV intravenous, As needed, Starting on Thu04/22/19 at 0727, Anesthesia Intra-op Given 04/22/2019 7:27 AM CDT 180 mg rocuronium (ZEMURON) injection intravenous, As needed, Starting on Thu04/22/19 at 0727, Anesthesia Intra-op Given 04/22/2019 9:09 AM CDT 10 mg Given 04/22/2019 8:33 AM CDT 20 mg Given 04/22/2019 8:04 AM CDT 20 mg documented in this encounter Orders Procedures Count Last Ordered Date First Orde red Date Airway 1 04/22/2019 documented in this encounter Care Teams Supervisor Opening And Picking Relationship Specialty Start Date End Date Ivanna Wadsworth NP [address] [address] PCP - General Nurse Practitioner 12/17/18 documented as of this encounter
--- OUTSIDE RECORDS SUMMARY | 2024-10-03 03:46 | XMS_ITS | Encounter Summary ---
Author Organization [facility] Healthcare Address [address] [place] [address] Care Team Providers Care Guard Range Name Role Phone Ivanna Wadsworth JAVA USER INTERFACE DEVELOPER Primary Care Provider + Encounter Details Date Type Department Care Team (Late st Contact Info) Description 04/22/2019 7:30 AM CDT - 04/22/2019 10:40 AM CDT Surgery [facility] Operating Room [address] [place] [address] David Mathias MD [address] [facility] [address] [place] [address] ARTHROSCOPY HIP - LABRAL REPAIR hip scope, osteo, scottie repair Surgery Details Date/Time Status Location OR Service Patient Class Case Cl ass Case Type Trauma Case? 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 * [facility] PATHWAY TO EXCELLENT CARE AFTER SURGERY * Scopolamine (Absorbed through the skin) (Hong Konger) documented in this encounter Medications at Time [...] Planning Preoperative Evaluation Record CPAP Clinic at [facility] ([facility]) Date: 04/05/19 Anesthesia Evaluation Roel Dougherty [...] BP - 78 Pertinent negatives: CAD ; DC ; DVT/PE; negative for CHF and hyperlipidemia [...] (ibuprofen) 200 mg tab/cap INV-SLCH K27M/TT peptide (LGEL163) vaccine metoprolol (LOPRESSOR) 25 mg tablet multivit-min/folic/vit K/lycop (MEN'S MULTIVITAMIN ORAL) prasterone, dhea, 25 mg capsule testosterone cypionate (DEPO-TESTOTERONE) 100 mg/mL injection UNABLE TO FIND vitamin D3/vitamin K2, MK4, (K2 PLUS D3 ORAL) Current Outpatient Medications: ??? acetaminophen (TYLENOL) 500 mg tablet ??? ANASTROZOLE ORAL ??? cyanocobalamin (Vitamin B-12) 1,000 mcg tablet ??? ibuprofen (ibuprofen) 200 mg tab/cap ??? INV-SLCH K27M/TT peptide (HAKT095) vaccine ??? 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 Item Serial No. Oven Baker Lot No. LRB No. Used [employer] [id number] BIORAPTOR KNOTLESS INNER LOCK PLUG CONTROLLABLE TENSION AD OPERATIONS ASSOCIATE - [id number] [employer] [id number] Bioraptor Knotless Inner Lock Plug Controllable Tension Mold Yard Crane Operator [employer] [id number] Right 2 [employer] AR-1938PS KNOTLESS SUTURETAK FIBERWIRE 3MM 12.7MM 2 ANCHOR SUTURE PEEK - [id number] [employer] AR-1938PS Knotless Suturetak Fiberwire 3mm 12.7mm 2 [place] Suture Peek [employer] [id number] 1 [employer] AR-1938PS KNOTLESS SUTURETAK FIBERWIRE 3MM 12.7MM 2 ANCHOR SUTURE PEEK - [id number] [employer] AR-1938PS Knotless Suturetak Fiberwire 3mm 12.7mm 2 [place] Suture Peek [employer] [id number] [employer] [id number] BIORAPTOR KNOTLESS INNER LOCK PLUG CONTROLLABLE TENSION AD OPERATIONS ASSOCIATE - [id number] [employer] [id number] Bioraptor Knotless Inner Lock Plug Controllable Tension Mold Yard Crane Operator [employer] [facility] Right 1 Blood/Blood Products Transfused: 0 mls Complications: None Condition on Discharge from the operating room was stable Jose Rogers MD Date: 04/22/2019 Time: 10:15 AM No Resident involved on case Cosigned by David Mathias MD at 04/22/2019 12:44 PM CDT * Op Note - David Mathias MD - 04/22/2019 12:00 AM CDT Attending Physician David Mathias MD First Talent Acquisition Consultant Jose Rogers MD Preoperative Diagnoses 1. Right [...] at the end. Job ID/VF Job ID: [id number] documented in this encounter Plan of Treatment Not on file documented as of this encounter Procedures Procedure Name Priority Date/Time Associated Diagnosis Comments FL FLUOROSCOPY < 1 HOUR IP Routine 04/22/2019 10:22 AM CDT ARTHROSCOPY HIP - OPEN HIP OSTEOPLASTY 04/22/2019 7:21 AM CDT Labral tear of hip, degenerative Case Notes Line up complete per [facility] 04/13 ARTHROSCOPY HIP - LABRAL REPAIR 04/22/2019 7:21 AM CDT Labral tear of hip, degenerative Case Notes Line up complete per [facility] 04/13 documented in this encounter Results * FL Fluoroscopy < 1 Hour (04/22/2019 10:22 AM CDT) Narrative [facility] - 04/22/2019 10:23 AM CDT The images from this study are not interpreted by Radiology. ??Please refer to the physician's procedure / OR operative note. us David Mathias MD IMG FLUOROSCOPY PROCEDURE S Final Result Performing Organization Address City/State/[facility] Co de Phone Number [facility] documented in this encounter Visit Diagnoses Diagnosis Labral tear of hip, degenerative- Primary Labral tear of hip, degenerative documented in this encounter Admitting Diagnoses Diagnosis Labral tear of hip, degenerative documented in this encounter Administered Medications Inactive Administered Medications - up to 3 most recent administrations Medication Order MAR Action Action Date Dose Rate Site bupivacaine (MARCAINE) 0.25 % (2.5 mg/mL) preservative free injection As needed, Starting on Thu04/22/19 at 1020, Intra-Op Given 04/22/2019 10:20 AM CDT 30 mL EPINEPHrine 2 mg in Lactated Ringer's (LR) 3,000 mL irrigation solution irrigation, Once, On Thu04/22/19 at 0745, For 1 dose, Intra-Op Given 04/22/2019 8:21 AM CDT 6,000 mL Surgical Site HYDROcodone-acetaminophen (NORCO) 5-325 mg per tablet [...] 6:42 AM CDT 30 mL/hr 30 mL/hr Lactated Ringer's (LR) irrigation As needed, Starting on Thu04/22/19 at 0821, Intra-Op Given 04/22/2019 10:00 AM CDT 9,000 mL Surgical Site Given 04/22/2019 8:21 AM CDT 1,000 mL Adkins rgical Site documented in this encounter Discontinued Medications Medication [...] Taking at Discharge 04/22/2019 INV-SLCH K27M/TT peptide ([id number]) vaccine Inject 0.8 mL into the muscle [...] Pain 1115 (Given - Provid er: Sol Esposito RN) Continuous Medication Order 04/20/2019 04/21/2019 04/22/2019 Lactated [...] Count Last Ordered Date First Ordered Date ceFAZolin (ANCEF) 2,000 mg/2 0 mL in sterile water (premix) 2,000 mg 04/22/2019 diphenhydrAMINE (BENADRYL) i njection 12.5 mg 04/22/2019 fentaNYL (SUBLIMAZE) preserv ative free injection 50 mcg 04/22/2019 haloperidol (HALDOL) injection 1 mg 04/22 HYDROmorphone (DILAUDID) injection 0.2 mg 04/22/2019 HYDROmorphone (DILAUDID) injection 0.4 mg 04/22/2019 meperidine (DEMEROL) preserv ative free injection 12.5 mg 04/22/2019 naloxone (NARCAN) 0.4 mg/mL injection 0.04-0.4 mg 04/22/2019 ondansetron (ZOFRAN) injection 4 mg 04/22 scopolamine patch 72 hour 1 patch 019 sodium chloride 0.9% flush 0.5-20 mL [...] 04/22/2019 documented in this encounter Care Teams Guard Range Relationship Specialty Start Date End Date Ivanna Wadsworth NP [address] [address] PCP - General Nurse Practitioner 12/17/18 documented as of this encounter
--- OUTSIDE RECORDS SUMMARY | 2024-10-03 03:46 | XMS_ITS | Encounter Summary ---
Author Organization [facility] Address [address] [place] [address] Phone Care Team Providers Care Loom Changer Name Role Phone Ivanna Wadsworth NP Primary Care Provider + Reason for Referral * Diagnostic Imaging (Routine) - Closed Specialty Diagnoses / Procedures Referred By Contac t Referred To Contact Diagnoses Femoroacetabular impingement of right hip Right hip pain Procedures XR Hip Right 4 or More Views David Mathias MD Phone: tel: fax: [facility] [id number] [place] [address] [place] [phone] Referral ID Status Reason Start Date Expiration Date Visits Re quested Visits Authorized [id number] Closed 05/18/2019 11/26/2020 1 1 Reason for Visit * Reason Comments Post-op Encounter Details Date Type Department Care Team (Latest Contact Info) Description 05/18/2019 1:50 PM CDT Office Visit [facility] Orthopaedic Surgery [address] [facility] 2nd [address] [place] [address] David Mathias MD [address] [place] [address] Femoroacetabular impingement of right hip (Primary Dx); Right hip pain Social History Tobacco Use Types Packs/Day Years [...] on file 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 PROCEDURE: Right hip scope, labral repair, osteochondroplasty. INTERIM HISTORY: Roel is a 43-year-old male who presents status post the above procedure. He is now approximately 1month out. He reports feeling extremely well. He denies having any issues or pain. He reports that his pain has improved significantly than it was before the surgery. He is anxious to get back to work. He currently is not taking any pain medications. PHYSICAL EXAMINATION: General: In no acute distress. Alert and oriented x3. Nonlabored respirations. Extremities: Focused examination of the right lower extremity demonstrates well- healed incisions. There is no surrounding erythema, drainage, dehiscence or concern for infection. Gentle range of motion of the right hip does not elicit pain. Sensation is intact to light touch in the superficial peroneal, deep peroneal, sural, saphenous, and tibial nerve distribution. He has 5/5 strength with tibialis anterior, gastrocsoleus complex, EHL, FHL. His foot is warm and well perfused. REVIEW OF X-RAY/STUDIES: X-rays of the right hip and pelvis obtained at today's clinic visit demonstrate no acute fractures or osteochondroplasty of the femoral head and neck junction. IMPRESSION/DIAGNOSIS: Roel is a 43-year-old male who is now approximately 1 month status post a right hip scope, doing very well. TREATMENT PLAN: I reviewed the imaging and exam findings with Roel at today's clinic visit. We discussed that he can return to work on 05/24/2019 without any restrictions. FOLLOW-UP: We would like him to follow up in 6 weeks for additional postop visit. Dictated by: Jessica Xie M.D. ATTENDING ADDENDUM The patient's history and physical examination have been dictated by Dr. Xie. I have independently performed a history and physical examination, and I agree with the findings. ELECTRONICALLY SIGNED - 05/19/2019 09:25 AM David Mathias MD Broadcast Operations Director Joint Preservation, Resurfacing and Replacement Service [facility] Orthopedics MM/RN/jq cc: MD IVANNA WILLS NP documented in this encounter Plan [...] Visit Diagnoses Diagnosis Femoroacetabular impingement of right hip- Primary Right hip pain Pain in joint, pelvic region and thigh Femoroacetabular impingement of right hip Right hip pain Pain in joint, pelvic region and thigh documented in this encounter Historical Medications * This list may reflect changes made after this encounter. scopolamine 1 mg over 3 days patch 3 day BRENNEN 1 PATCH BEHIND EAR 1 DAY PRIOR TO SURGERY DATE 0 04/13/2019 added in this encounter Care Teams Loom Changer Relationship Specialty Start Date End Date Ivanna Wadsworth NP [address] [address] PCP - General Nurse Practitioner 12/17/18 documented as of this encounter
--- OUTSIDE RECORDS SUMMARY | 2024-10-03 03:47 | XMS_ITS | Encounter Summary ---
Author Organization [facility] Address [address] [place] [address] Phone Care Team Providers Care Delivery Representative Name Role Phone Ivanna Wadsworth Miriam FARM OWNER OPERATOR Primary Care Provider + Reason for Visit * Reason Comments Pain Encounter Details Date Type Department Care Team (Late st Contact Info) Description 01/21/2019 10:10 AM CDT Office Visit [facility] Orthopaedic Surgery [address] [place] [address] Neeraj Walden PA [address] [facility] [address] [place] [address] Right hip pain (Primary Dx); Femoroacetabular impingement of right hip Social History Tobacco Use Types Packs/Day Years [...] on file 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 Right Hip - Pain HISTORY OF PRESENT ILLNESS: 43-year-old gentleman presents office today with chief complaint of chronic right hip pain for greater than 20 years. Patient states he was originally diagnosed with bursitis back in the 20 years ago. He followed up with Dr. Londono orthopedic surgeon over [place] about 5 years ago diagnosed with ERICK. At that time he also had evaluation with an MRI arthrogram through the [facility] whichreportedly revealed a labral tear. According to the patient his Dr. Mathias review the MRI arthrogram and was told to make a follow-up appointment to discuss possible arthroscopic intervention. Patient is that increasing symptoms over last 6 months. He has tried a number of different oral nonsteroidals with no significant relief of symptoms. Received an injection few years back to the [facility] which provided relief for a few days. Today describes a moderate ache in the superior lateral groin made worse with activity better with rest. 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 Feels like theright hip symptoms interfere with life and he would like to consider surgical intervention. Denies any back pain or paresthesias. PAST MEDICAL HISTORY: Past Medical History: Diagnosis Date ??? Anxiety ??? Hypertension ??? Sleep apnea, obstructive PAST SURGICAL HISTORY: Past Surgical History: Procedure Laterality Date ??? CLOSED REDUCTION AC JOINT ??? TONSILLECTOMY MEDICATIONS: Current Outpatient Medications on File Prior to Visit Medication Sig Dispense Refill ??? testosterone cypionate (DEPO-TESTOTERONE) 100 mg/mL injection Inject into the muscle as instructed every 14 (fourteen) days No current facility-administered medications on file prior to visit. ALLERGIES: No Known Allergies SOCIAL HISTORY: Social History Socioeconomic History ??? Marital status: Spouse name: Not on file ??? Number of children: Not on file ??? Years of education: Not on file ??? Highest education level: Not on file Occupational History ??? Not on file Social Needs ??? Financial resource strain: Not on file ??? Food insecurity: Worry: Not on file Inability: Not on file ??? Transportation needs: Medical: Not on file Non-medical: Not on file Tobacco Use ??? Smoking status: Never Smoker ??? Smokeless tobacco: Never Used Substance and Sexual Activity ??? Alcohol use: Never Frequency: Never ??? Drug use: Never ??? Sexual activity: Defer Lifestyle ??? Physical activity: Days per week: Not on file Minutes per session: Not on file ??? Stress: Not on file Relationships ??? Social connections: Talks on phone: Not on file Gets together: Not on file Attends gnosticism service: Not on file Active member of club or organization: Not on file Attends meetings of clubs or organizations: Not on file Relationship status: Not on file ??? Intimate partner violence: Fear of current or ex partner: Not on file Emotionally abused: Not on file Physically abused: Not on file Forced sexual activity: Not on file Other Topics Concern ??? Not on file Social History Narrative ??? Not on file FAMILY HISTORY: History reviewed. No pertinent family history. REVIEW OF SYSTEMS: Twelve System Review accomplished and unremarkable for systemic complaints. PHYSICAL EXAMINATION: Stands 6 ft 1, 261 lb, BMI 34. Patient company by his . Transfer ztu-lb-ecrak pushing up on thearms chair ambulates with slight antalgic gait on the right. Leg lengths appeared equal. Passive range of motion right hip: Started flexion 0??, and flexion 100??, IRF 20, ER 40, abduction 40. Positive anterior impingement on the right. Positive Rodo's to the groin on the right. Neurovascular intact right lower extremity. Right hip abductor strength 5/5 XRAYS/REVIEW OF STUDIES: X-rays reviewed from 12/08/2018 views right hip revealed mild asphercity of the femoral head with well-preserved joint space. MRI without contrast performed last month revealed well-preserved joint space. Questionable labral tear ASSESSMENT/PLAN: Right hip ERICK with previous MRI arthrogram diagnose labral tear and short-term response to steroid injection Patient is interested in arthroscopic intervention for his right hip ERICK likely labral tear. We will try to facilitate appointment with Dr. Mathias to discuss surgical timing. Neeraj Walden PA-C Joint Reconstructive Service [facility] Orthopedic Surgery documented in this encounter Plan of Treatment Not on file documented as of this encounter Visit Diagnoses Diagnosis Right hip pain- Primary Pain in joint, pelvic region and thigh Femoroacetabular impingement of right hip documented in this encounter Historical Medications * This list may reflect changes made after this encounter. testosterone cypionate (DEPO-TESTOTERON E) 100 mg/mL injectionIndicat ions:Androgen Deficiency,on THURSDAY Inject 100 mg into the muscle as instructed once a week 9 added in this encounter Care Teams Delivery Representative Relationship Specialty Start Date End Date Ivanna Wadsworth NP [address] [address] PCP - General Nurse Practitioner 12/17/18 documented as of this encounter
--- OUTSIDE RECORDS SUMMARY | 2024-10-03 03:47 | XMS_ITS | Encounter Summary ---
Author Organization [facility] Address [address] [place] [address] Phone Care Team Providers Care Plate Drying Machine Tender Name Role Phone Ivanna Wadsworth FLOATLIGHT POWDER MIXER Primary Care Provider + Encounter Details Date Type Department Care Team (Late st Contact Info) Description 01/21/2019 Orders Only [facility] Orthopaedic Surgery [address] [place] [address] [address] [place] [address] Beverly Cordero ATC Social History Tobacco Use Types Packs/Day Years [...] on file 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 metoprolol (LOPRESSOR) 25 mg tablet TAKE 1 TABLET EVERY MORNING AND 1 TABLET AT BEDTIME FOR BP CONTROL 0 11/25/2018 added in this encounter Care Teams Plate Drying Machine Tender Relationship Specialty Start Date End Date Ivanna Wadsworth NP [address] [address] PCP - General Nurse Practitioner 12/17/18 documented as of this encounter
--- OUTSIDE RECORDS SUMMARY | 2024-10-03 03:47 | XMS_ITS | Encounter Summary ---
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 Gender Identity Not on file Sexual Orientation Not on file documented as of this encounter Medications at Time of Discharge metoprolol (LOPRESSOR) 25 mg tablet TAKE 1 TABLET EVERY MORNING AND 1 TABLET AT BEDTIME FOR BP CONTROL 0 11/25/2018 testosterone cypionate (DEPO-TESTOTERON E) 100 mg/mL injectionIndicat ions:Androgen Deficiency,on THURSDAY Inject 100 mg into the muscle as instructed once a week 9 documented as of this encounter Discharge Disposition Disposition Code Departure Means Destination Discharge to home or self care documented in this encounter Plan of Treatment Not on file documented as of this encounter Procedures Procedure Name Priority Date/Time Associated Diagnosis Comments MSK CT MR OUTSIDE REFERENCE Routine 01/21/2019 3:17 PM CDT Right hip pain documented in this encounter Results * MSK CT MR Outside Reference (01/21/2019 3:17 PM CDT) Impressions [facility] - 01/21/2019 3:17 PM CDT These images are for Reference purposes only and have not been reviewed by [facility] Radiology. ??There will be no report generated by a [facility] Radiologist. Narrative [facility] - 01/21/2019 3:17 PM CDT EXAMINATION: ??Images For Reference Purposes Only Neeraj ARAMBULA IMG CT PROCEDURES Final Resul t [facility] documented in this encounter Visit Diagnoses Not on filedocumented in this encounter Care Teams Wheel Roller Relationship Specialty Start Date End Date Ivanna Wadsworth NP [address] [address] PCP - General Nurse Practitioner 12/17/18 documented as of this encounter
--- OUTSIDE RECORDS SUMMARY | 2024-10-03 03:47 | XMS_ITS | Encounter Summary ---
Author Organization [facility] Healthcare Address [address] [place] [address] Care Team Providers Care Xray Tech Name Role Phone Ivanna Wadsworth CHEF FRENCH Primary Care Provider + Encounter Details Date Type Department Care Team (Latest Contact Info) Description 01/21/2019 3:17 PM CDT - 01/21/2019 11:59 PM CDT Hospital Encounter [facility] [address] [place] [address] Neeraj Walden PA [address] [place] [address] Discharge Disposition: Discharge to home or self [...] on file Legal Sex Male 8:[address] MAGISTRATE Gender Identity Not on file Sexual Orientation [...] Name Priority Date/Time Associated Diagnosis Comments XR TRANSFER OF OUTSIDE FILMS Routine 01/21/2019 3:17 PM CDT documented in this encounter Results * XR Outside Reference (01/21/2019 3:17 PM CDT) Impressions [facility] - 01/21/2019 3:17 PM CDT These images are for Reference purposes only and have not been reviewed by [facility] Radiology. ??There will be no report generated by a [facility] Radiologist. Narrative [facility] - 01/21/2019 3:17 PM CDT EXAMINATION: ??Images For Reference Purposes Only us Neeraj ARAMBULA IMG XR PROCEDURES Final Resul t Performing Organization Address City/State/[facility] Co de Phone Number [facility] documented in this encounter Visit Diagnoses Not on filedocumented in this encounter Care Teams Xray Tech Relationship Specialty Start Date End Date Ivanna Wadsworth NP [address] [address] PCP - General Nurse Practitioner 12/17/18 documented as of this encounter
--- OUTSIDE RECORDS SUMMARY | 2024-10-03 06:43 | XMS_ITS | Continuity of Care Document ---
Author Name [facility] Organization [facility] Care Team Providers Care Channel Worker Name Role Phone [facility] Unavailable Unavailable Problems Combined list of problems from Department of [facility] and [facility] facilities. It does not include entries that were removed or entered in error. Problem Status Onset Date Problem Type Date of Resolution Comments Source Benign hypertension Active Condition [facility] Chronic low back pain Active Condition [facility] Femoral acetabular impingement Active Condition [facility] HEALTH EXAM-GROUP SURVEY Active Condition DAVID Herrera [facility] Neck pain Active Condition [facility] Primary insomnia Active Condition [facility] Medications Combined list of outpatient medications from Department of [facility] and [facility] facilities.Medications provided include 1) outpatient medications from the last 15 months, and 2) patient-reported medications. Medication Details Route Status Patient Instructions Prescription Expires Prescription Number Last Dispense Date Ordering Provider Order Date Order Qty Source ACETAMINOPH EN 500MG TAB TAKE TWO TABLETS BY MOUTH THREE TIMES A DAY NEEDED ORAL ACTIVE PARESH GEORGE 2014 [facility] METOPROLOL TARTRATE 50MG TAB TAKE ONE-HALF TABLET BY MOUTH TWICE A DAY ORAL ACTIVE KILEY RODRGIEZ 2018 [facility] Immunizations Combined list of available immunizations from the Department of [facility] and [facility] facilities. Immunization Series Date Given Administered By Site Reaction Lot Number CVX Code Drug Flue Lining Dipper Status Comments Source INFLUENZA, SEASONAL, INJECTABLE, PRESERVATIVE FREE 2013 140 complet ed [facility] TDAP 2013 115 complet ed Left Deltoid [facility] Encounters Combined list of: 1) Encounters from Department of [facility] facilities going back up to thelast 18 months. 2) Encounters from the Department of [facility] facilities going back up to 280 months. 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 Social History Type Response Date Comment Sour e Tobacco smoking status [facility] VA-TOBACCO NEVER USED 08/19/2018 [facility] History of tobacco use LIFETIME NON-USER OF TOBACCO 06/01/2017 never [facility] History of tobacco use LIFETIME NON-USER OF TOBACCO 04/27/2017 never [facility] History of tobacco use LIFETIME NON-USER OF TOBACCO 03/10/2016 [facility] History of tobacco use LIFETIME NON-USER OF TOBACCO 04/10/2015 never [facility] History of tobacco use LIFETIME NON-USER OF TOBACCO 04/17/2014 never [facility]
--- OUTSIDE RECORDS SUMMARY | 2024-10-03 06:44 | XMS_ITS | CONTINUITY OF CARE DOCUMENT ---
Author Name heather romero Address Unknown Organization [facility] Address [id number] [place] [address] [address] [place] [address] Phone [phone] Care Team Providers Care Salesforce Trainer Name Role Phone Nadege Pimentel MD Unavailable [phone] Ananth TOP STITCHER-BC, Ivanna L Unavailable Ananth TOP STITCHER-BC, Ivanna L Unavailable [phone] PROBLEMS Condition Status Date Provider Notes Hypertension active Estelita Quiroz [facility] Family History of CVA or Stroke: active Nai Quiroz [facility] Systolic murmur active Estelita Quiroz [facility] Iron, serum, elevated active Estelita Ureña er [facility] Hypertension, white coat active Estelita Casarez ndler [facility] Anxiety active Estelita Quiroz [facility] Abnormal EKG active Estelita Quiroz [facility] Obesity active Estelita Quiroz [facility] Low testosterone level active Estelita flores [facility] Erectile dysfunction active Estelita Blakely r [facility] ENCOUNTERS Date Type Provider Location Encounter Diag nosis - In-person encounter Office Visit Nadege Pimentel MD [facility] - In-person encounter Office Visit Nadege Pimentel MD [facility] HypertensionErectile dysfunctionLow testosterone levelObesityAbnormal EKGAnxietyHypertension, white coatIron, serum, elevatedSystolic murmurFamily History of CVA or Stroke: VITAL SIGNS Date Observation Value Provider Body Mass Index (Ratio) 34.11 kg/m2 Jorge Pimentel MD blood pressure, cuff size regular St nicole Sung blood pressure, diastolic 90 mm[Hg] St nicole [...] blood pressure, diastolic 110 mm[Hg] Ke rri Shey blood pressure, systolic 155 mm[Hg] Terrence Kat [...] 0.5 mg tablet active as needed Estelita Qurioz NP SOCIAL HISTORY Date Observation Value Provider smoking status Never smoker Katalina Sung smoking status Never smoker Naina Paynejacque silverio FAMILY HISTORY Family Member Condition Maternal Grandmother Family History of C VA or Stroke: INSURANCE PROVIDERS Payer name Policy type / Coverage type Inchelium red libertarian ID [id number] ADVANCE DIRECTIVES Name Date DISCUSSED - NO DECISION MADE TREATMENT PLAN Date Name Performer [id number],C,E CHO trace MR His updated medication list for this problem includes: Nitroglycerin 0.4 Mg Tablet, Sublingual (Nitroglycerin) ..... Take 1 tablet under tongue as needed for chest pain. up to 3 tablets per episode (5 min apart). if no relief, go to er. Losartan 50 Mg Tablet (Losartan) ..... Take 1 tablet by mouth twice daily Nadege Pimentel MD [id number],C,p t has been off testosterone and has been feeling better. Estelita Quiroz NP [id number],C,p t has been keeping log of BP, which reading have been good. SBP 110's-130's. today BP is 147/90, which he contributes to 'white coat syndrome.' Estelita Quiroz NP [id number],C, l abs revealed high iron 226.5, iron sat 54, TIBC 419. H gb 18.3 pt has donated blood x2 since these labs were drawn. r epeat labs were done. will have PCP send over the results. Estelita Quiroz NP [id number],C,E CHO trace MR Estelita Quinterofarrah AJ [id number],C, Nadege hector MD [id number],C,w ill check ECHO, stress test. ST depression [...] mouth once a day Nadege Pimentel MD [id number],W, B P today: 155/110. adding norvasc. Discussion [...] daily BP today: 155/110 Nadege Pimentel MD [id number],C,r ecommend stopping testosterone supplements for now, until further CV testing completed. labs revealed high iron 226.5, iron sat 54, TIBC 419. H gb 18.3 ALP 42.8, SLT 23, AST 22, VIT D 50, CORTISOL 7.01, TESTOSTERONE TOTAL 803, testerone free 21.9 TSH 2.53, T4 0.94, T3 3.49, MG 1.9 Estelita Richie AJ [id number],C,l abs revealed high iron 226.5, iron sat 54, TIBC 419. H gb 18.3 Estelita Richie AJ [id number],C, B P today: 155/110. adding norvasc. Discussion [...] by mouth twice daily Estelita Blakelydelisa AJ [id number],C,l abs revealed high iron 226.5, iron sat 54, TIBC 419. Estelita Blakelydelisa AJ [id number],C,check ECHO. J kori Blakelydelisa AJ [id number],C,w ill check ECHO, stress test. 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 Estelita Quinterofarrah AJ [id number],C,r ecommend stopping testerone for now, until further CV testing completed. Estelita Blakelydelisa AJ [id number],C, B P today: 155/110. adding norvasc. Discussion [...]
== END 2024-09-26 22:43 | disposition home or self-care (01) ==
PROVIDERS: Student in an Organized Health Care Education/Training Program; Emergency Provider Physician Assistant; PCP Family Medicine
DX: R07.89 Other chest pain (principal); I10 Essential (primary) hypertension; R00.0 Tachycardia, unspecified; R94.31 Abnormal electrocardiogram [ECG] [EKG]
CPT/HCPCS: 36415; 71046; 80053; 83690; 84484; 85025; 85380; 85610; 85730; 93005; 99284

== ENCOUNTER 2025-07-26 01:13 | Day surgery (SDC) | payer BC, SELFPAY ==
[2025-07-14 14:27] VITALS: BMI 34.9
--- OUTSIDE RECORDS SUMMARY | 2025-07-26 01:15 | XMS_ITS | Clinical Summary ---
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 Gender Identity Not on file Sexual Orientation Not on file Last Filed Vital Signs Vital Sign Reading Time Taken Comments Blood Pressure 133/93 04/22/2019 12:30 PM CDT Pulse 74 04/22/2019 12:50 PM CDT Temperature 36.2 C (97.2 F) 04/22/2019 1:30 PM CDT Respiratory Rate 12 04/22/2019 10:50 AM CDT Oxygen Saturation 98% 04/22/2019 12:50 PM CDT Inhaled Oxygen Concentration - - Weight 119 kg (262 lb 5.6 oz) 04/05/2019 3:25 PM CDT Height 185.4 cm (6' 1) 04/05/2019 3:25 PM CDT Body Mass Index 34.61 04/05/2019 3:25 PM CDT Plan of Treatment Not on file Medical Devices Implanted Type Area Printing Roller Handler Device Identifier Shelf Expiration Date Model / Serial / Lot Dental Implant Tooth [employer] [id number] Bioraptor Knotless Inner Lock Plug Controllable Tension Senior Risk Manager - [id number] Implanted:Qty: 2 on 04/22/2019 by David Mathias MD at [facility] Right: Hip [employer] 06/16/2023 [id number] / / [id number] [employer] Ar-1938ps Knotless Suturetak Fiberwire 3mm 12.7mm 2 [place] Suture Peek - [id number] Implanted:Qty: 1 on 04/22/2019 by David Mathias MD at [facility] Right: Hip [employer] 12/20/2023 AR-1938PS / / [id number] [employer] Ar-1938ps Knotless Suturetak Fiberwire 3mm 12.7mm 2 [place] Suture Peek - [id number] Implanted:Qty: 1 on 04/22/2019 by David Mathias MD at [facility] Right: Hip [employer] [id number] 12/20/2023 AR-1938PS / / [id number] [employer] [id number] Bioraptor Knotless Inner Lock Plug Controllable Tension Senior Risk Manager - [id number] Implanted:Qty: 1 on 04/22/2019 by David Mathias MD at [facility] Right: Hip [employer] 07/16/2023 [id number] / / Insurance [employer] CHOICE Care Teams Centrifugal Extractor Operator Relationship Specialty Start Date End Date Ivanna Wadsworth NP PCP - General Nurse Practitioner 12/17/18
[2025-07-26 06:14] VITALS: BP 133/95; PULSE 75; RESP 20; TEMP 36.3; O2SAT 99; BMI 35.6
[2025-07-26] MEDS: LACTATED RINGERS 1,000 ML 150 ML IV CONT (06:22)
--- NOTE | 2025-07-26 06:50 | WPDANESEPPF ---
Anes - Initial Pre Proc Eval Procedure: Operation Date: 07/26/25 07:30 Proposed Procedures p Screening Colonoscopy - Temo Oconnor DO Date/Time: 07/26/25 06:50 Surgeon: Temo Oconnor DO Pre Op Diagnosis: Screening for malignant neoplasm of colon Patient Data Age: 49 Gender: M Height: 1.85 m Weight: 122.5 kg Last Vital Signs Temp 36.3 C L 07/26/25 06:14 Pulse 75 07/26/25 06:14 Resp 20 07/26/25 06:14 BP 133/95 H 07/26/25 06:14 Pulse Ox 99 07/26/25 06:14 O2 Del Method Room Air 07/26/25 06:14 Allergies Allergy/AdvReac Type Severity Reaction Status Date / Time No Known Allergies Allergy Verified 07/26/25 06:12 Home Medications ?Medication ?Instructions ?Recorded ?Confirmed ?Type alprazolam 0.5 mg tablet 0.5 mg PO .prn 05/31/25 07/26/25 History amlodipine 5 mg tablet 5 mg PO DAILY 05/31/25 07/26/25 History losartan 50 mg tablet 100 mg PO DAILY 05/31/25 07/26/25 History sildenafil 25 mg tablet (Viagra) 20 mg PO DAILY PRN ED 05/31/25 07/14/25 History Patient hx anesthesia problems: none Family hx anesthesia problems: none Results Review: All pre-operative results and documents have been reviewed as part of the pre-operative evaluation. [facility] Past Medical History Medical History (Updated 05/31/25 @ 11:38 by Baylee Dorantes CMA) History of arthritis History of anxiety History of hypertension Surgical History Surgical History (Updated 05/31/25 @ 11:00 by Alycia Brumfield MA) History of hip surgery 04/22/2019 H/O knee surgery Reconstruction of anterior cruciate ligament of knee joint Hx of tonsillectomy H/O nasal septoplasty Status post surgical removal of acromioclavicular joint Family History Family History Mother Alcoholism in family Depression Colon polyp Father Alcoholism in family Sibling Hypertension Colon polyp Social History Social History Smoking status: Never smoker Alcohol intake: current Drinks per week: 12 Alcohol use details: 5-7 drinks per week Substance use: current Substance use type: marijuana Other substance usage details: Daily Do You Feel Safe in your Home?: Yes Lack of Transportation: No Lack of Food: Never True Current Housing: I Have Housing Concerned About Future Housing: No Difficulty Paying Gas/Electric Bills: No Difficulty Paying for Meds: No Currently Unemployed: No Education: High School Diploma/GED Difficulty w/ Childcare or Family Care: No Living arrangements: with family Occupation/Education: occupation Additional occupation/education comments: [employer] Spiritual care concerns: No Anes - Eval Final PreProcedure Day of Procedure 07/26/25 06:50 Patient weight: obese Heart: regular rate and rhythm Lungs: clear to auscultation Airway: Mallampati scale class II Neurological: alert and oriented Last oral intake: >/= 8 hours ASA classification: III Emergent: no Anesthetic plan: proceed Anesthesia type and monitoring: general GIVS and standard monitoring Results Review: All pre-operative results and documents have been reviewed as part of the pre-operative evaluation. Informed Consent: The patient's anesthetic plan and its attendant risks and benefits were discussed with the patient/family/POA. Questions were solicited and answers provided to the satisfaction of the patient/family/POA.
--- NOTE | 2025-07-26 07:30 | PM.IMHP ---
H&P: HPI History of Present Illness Date/Time: 07/26/25 07:30 Chief Complaint: Screening for colorectal cancer Narrative: This is a 49-year-old man who presents for his 1st colonoscopy. He denies any hematochezia or melena. He denies any family history of colon cancer, but does have a sibling and mother who have had polyps removed in the past. Does not know if they were pre malignant or large polyps. Review of Systems Review of Systems: All systems reviewed & are unremarkable except as noted in HPI and below Constitutional: Constitutional: Denies chills, Denies fever(s), Denies headache(s) and Denies weight loss Eyes: Eyes: Denies change in vision ENT: Denies dizziness, Denies headache(s), Denies neck mass and Denies throat swelling Cardiovascular: Cardiovascular: Denies chest pain, Denies lightheadedness and Denies dyspnea Respiratory: Respiratory: Denies cough, Denies dyspnea and Denies wheezing Gastrointestinal: Gastrointestinal: Denies abdominal pain, Denies change in bowel habits, Denies nausea and Denies vomiting Genitourinary: Genitourinary: Denies hematuria and Denies dysuria Musculoskeletal: Musculoskeletal: Reports as per HPI Integumentary/Breasts: Skin/Breast: Reports as per HPI Neurologic: Denies dizziness and Denies headache(s) Allergic/Immunologic: Allergic/Immunologic: Denies throat swelling and Denies wheezing [facility] Past Medical History Medical History (Updated 07/26/25 @ 07:31 by Temo Oconnor DO) History of arthritis History of anxiety History of hypertension Surgical History Surgical History (Updated 05/31/25 @ 11:00 by Alycia Brumfield MA) History of hip surgery 04/22/2019 H/O knee surgery Reconstruction of anterior cruciate ligament of knee joint Hx of tonsillectomy H/O nasal septoplasty Status post surgical removal of acromioclavicular joint Family History Family History Mother Alcoholism in family Depression Colon polyp Father Alcoholism in family Sibling Hypertension Colon polyp Social History Social History Smoking status: Never smoker Alcohol intake: current Drinks per week: 12 Alcohol use details: 5-7 drinks per week Substance use: current Substance use type: marijuana Other substance usage details: Daily Do You Feel Safe in your Home?: Yes Lack of Transportation: No Lack of Food: Never True Current Housing: I Have Housing Concerned About Future Housing: No Difficulty Paying Gas/Electric Bills: No Difficulty Paying for Meds: No Currently Unemployed: No Education: High School Diploma/GED Difficulty w/ Childcare or Family Care: No Living arrangements: with family Occupation/Education: occupation Additional occupation/education comments: [employer] Spiritual care concerns: No Meds Home Medications and Allergies Home Medications ?Medication ?Instructions ?Recorded ?Confirmed ?Type alprazolam 0.5 mg tablet 0.5 mg PO .prn 05/31/25 07/26/25 History amlodipine 5 mg tablet 5 mg PO DAILY 05/31/25 07/26/25 History losartan 50 mg tablet 100 mg PO DAILY 05/31/25 07/26/25 History sildenafil 25 mg tablet (Viagra) 20 mg PO DAILY PRN ED 05/31/25 07/14/25 History Allergies Allergy/AdvReac Type Severity Reaction Status Date / Time No Known Allergies Allergy Verified 07/26/25 06:12 Vital Signs Vital Signs - 24 hr 07/26/25 06:14 Temperature 97.4 F L Pulse Rate 75 Respiratory Rate 20 Blood Pressure 133/95 H Pulse Oximetry 99 Oxygen Delivery Room Air Exam Const: General: no acute distress and alert Orientation/consciousness: patient oriented x3 HENMT: Head: normocephalic and atraumatic Ears: hearing grossly normal bilaterally Face/Nose/Sinus: Normal nares present Mouth: Yes Normal oral and palatal mucosa present Eyes: Periorbital: periorbital findings normal Sclera: sclerae normal EOM: EOMs intact bilaterally Neck: Neck: normal visual inspection, no lymphadenopathy and trachea midline Chest: Chest palpation & inspection: normal inspection of the chest Resp: Effort & Inspection: normal respiratory effort Auscultation: clear to auscultation bilaterally Cardio: Jugular venous distension: no JVD Rate: regular rate Rhythm: regular rhythm Heart sounds: S1 normal heart sound present and S2 normal heart sound present Peripheral pulses: Peripheral pulses 2+ throughout GI: Inspection: normal to inspection GI Palp: Yes Soft to palpation, No Tenderness to palpation present (GI), No Guarding due to palpation present (GI) and No Rebound tenderness present Percussion: Yes normal to percussion Auscultation: normal bowel sounds : General: Yes no CVA tenderness Back/Spine/Pelvis: Back: no CVA tenderness Neuro: General: patient oriented x3, no focal motor deficits and CN's II-XI intact bilaterally Cognition (Neuro): normal cognition Speech: normal speech Motor exam (neuro): 5/5 motor strength present throughout Extrem: General: capillary refill normal and no clubbing, cyanosis or edema Assessment and Plan Assessment and plan (1) Screening for colorectal cancer: Code(s): Z12.11 - Encounter for screening for malignant neoplasm of colon; Z12.12 - Encounter for screening for malignant neoplasm of rectum Status: Acute Assessment and Plan: I have recommended colonoscopy. I have discussed the procedure, risks, benefits, and alternatives. Questions were answered. Patient is agreeable to proceed.
--- NOTE | 2025-07-26 07:57 | S_PTH ---
PATIENT: Roel Dougherty LOC: [facility] U#:[id number] AGE/SX: 49/M ROOM: RE07/26/[address]: Temo Oconnor DO : 1975 BED: DIS: 07/26/2025 SPEC #: [id number] RECD: 07/26/25 08:47 STATUS: ALMITA REAlissa #: [id number] ALEXY: 07/26/25 07:[address]: Temo Oconnor DEPT: [facility] Surgical RECD BY: Tiff Spaulding ENTERED: 07/26/25 08:47 SP TYPE: Surgical OTHR DR: Jacques Charlton, Tissues: A - Colon Polypectomy Procedures: Hematoxylin and Eosin Stain Gross and Microscopic Level 4
[2025-07-26 07:59] VITALS: BP 131/86; PULSE 68; RESP 18; O2SAT 96
[2025-07-26 08:09] VITALS: BP 123/81; PULSE 65; RESP 18; O2SAT 99
[2025-07-26 08:19] VITALS: BP 126/84; PULSE 64; RESP 18; O2SAT 98
== END 2025-07-26 08:29 | disposition home or self-care (01) ==
PROVIDERS: PCP Family Medicine; Visit Provider Surgery
PROC: 0DJD8ZZ Inspection of Lower Intestinal Tract, Via Natural or Artificial Opening Endoscopic (ICD-10-PCS; CPT 45378; principal; 2025-07-26 07:30)
DX: Z12.11 Encounter for screening for malignant neoplasm of colon (principal); D12.0 Benign neoplasm of cecum; K57.30 Diverticulosis of large intestine without perforation or abscess without bleeding; I10 Essential (primary) hypertension; F41.9 Anxiety disorder, unspecified; M19.90 Unspecified osteoarthritis, unspecified site; F12.90 Cannabis use, unspecified, uncomplicated; E66.9 Obesity, unspecified; Z68.35 Body mass index [BMI] 35.0-35.9, adult; Z98.890 Other specified postprocedural states; Z83.719 Family history of colon polyps, unspecified
CPT/HCPCS: 45380; 88305; J2704; J7120